=== PATIENT | female | born 1975 | race Caucasian/White ===

== ENCOUNTER → 2019-11-07 09:37 | Outpatient (CLI) | payer OTHER, BC, SELFPAY ==
--- NOTE | ~2019-11-07 | MM_ITS ---
EXAMINATION: MM diagnostic teri BI w josephine HISTORY: Itching of the right nipple. TECHNIQUE: Additional 3-D tomosynthesis images of the breasts were performed and synthetic 2-D images were generated. CAD analysis was submitted and interpreted. COMPARISON: Comparison to multiple prior studies sequentially, with oldest reviewed study dated 12/2017. BREAST PARENCHYMAL COMPOSITION: Breast composed of scattered areas of fibroglandular density FINDINGS: There are no suspicious masses, calcifications or architectural distortion in either breast to suggest malignancy. IMPRESSION: 1. No mammographic evidence for malignancy in either breast. 2. Routine yearly screening mammogram and regular clinical breast examination are recommended. Recomm end follow-up clinical management for right nipple discomfort. BI-RADS Category 1: Negative Reviewed, dictated and finalized at location A. IMPRESSION: 1. No mammographic evidence for malignancy in either breast. 2. Routine yearly screening mammogram and regular clinical breast examination a re recommended. Recommend follow-up clinical management for right nipple discom fort. BI-RADS Category 1: Negative
== END ==
PROVIDERS: Visit Provider Obstetrics & Gynecology Gynecology
DX: N64.59 Other signs and symptoms in breast (principal)
CPT/HCPCS: 77062; 77066; G0279

== ENCOUNTER 2019-12-04 08:52 | Outpatient (CLI) | payer OTHER, BC, SELFPAY ==
--- NOTE | ~2019-12-04 | US_ITS ---
EXAMINATION: US venous doppler LE EXAM DATE: 12/04/2019 09:39 INDICATION: Right leg swelling and pain. TECHNIQUE: Multiple grayscale, color flow and Doppler images of the right lower extremity deep venous system were obtained and reviewed. Comparison is made to prior examination from 11/23/2012. FINDINGS: RIGHT SIDE Common femoral: -------- Normal. Profunda femoral: ------- Normal. Femoral: Normal. Popliteal: Compressible. Linear longitudinal oriented web/scarring, unchanged. Posterior tibial: --------- Normal. Peroneal: Normal. Gastrocnemius: Not visualized. Soleus: Not visualized. Greater saphenous: ----- Normal. Lesser saphenous: ------ Not visualized. IMPRESSION: 1. No evidence of right lower extremity deep venous thrombosis. Reviewed, dictated and finalized at location B.
--- NOTE | ~2019-12-04 | US_ITS ---
EXAMINATION: US joint non vasc ltd RT EXAM DATE: 12/04/2019 09:38 INDICATION: Right popliteal space pain. TECHNIQUE: Multiple grayscale and Doppler images of the right popliteal region were obtained (by a te chnologist who performed the scan) and subsequently reviewed. There is no prior study for comparison . FINDINGS: Scanning in popliteal fossa, area of clinical concern demonstrated no Chua's cyst, mass or other abn ormality. IMPRESSION: 1. Unremarkable right popliteal fossa. Reviewed, dictated and finalized at location B.
[2019-12-04 09:51] LABS: Basophils Percent Auto 0.7 % (0.2-1.2); Eosinophils Absolute Auto 0.1 K/mm3 (0-0.3); Eosinophils Percent Auto 2.4 % (0-4.4); Hematocrit 40.6 % (37.0-47.0); Immature Granulocyte Absolute 0.02 K/mm3 (0.00-0.031); Immature Granulocyte Percent A 0.4 % (0-0.5); Lymphocytes Absolute Auto 1.01 K/mm3 (0.9-3.2); Lymphocytes Percent Auto 22.4 % (18.3-44.2); Mean Corpuscular HGB Conc 34.5 g/dl (32-36); Mean Corpuscular Hemoglobin 31.8 pg (26-34); Mean Corpuscular Volume 92.3 fl (80-100); Mean Platelet Volume 9.3 fl (7.4-10.4); Monocytes Absolute Auto 0.3 K/mm3 (0.1-0.6); Monocytes Percent Auto 6.9 % (2.6-8.5); Neutrophils Percent Auto 67.2 % (45.5-73.1); Platelet Count Result 295 k/mm3 (150-375); Red Cell Distribution Width 11.6 % (11.5-14.5); White Blood Count 4.5 K/mm3 (4.5-10.0)
[2019-12-04 10:01] LABS: INR 1.1; Prothrombin Time 13.9 Seconds (11.1-14.7)
[2019-12-04 10:02] LABS: Partial Thromboplastin Time 50.7 SECONDS (22.3-36.8)
[2019-12-04 10:12] LABS: Alanine Aminotransferase 22 U/L (4-35); Albumin Level 4.6 g/dL (3.5-5.1); Alkaline Phosphatase 51 U/L (38-126); Anion Gap 9 mmol/L (8-16); Aspartate Amino Transferase 23 U/L (14-36); Bilirubin,Total 0.7 mg/dL (0.2-1.3); Blood Urea Nitrogen 19 mg/dL (7-17); Calcium 9.6 mg/dL (8.4-10.2); Carbon Dioxide 25 mmol/L (22-30); Chloride 105 mmol/L (98-107); Estimated Glomerular Filt Rate > 60; Glucose 101 mg/dL (65-105); Potassium 4.2 mmol/L (3.4-5.0); Sodium 139 mmol/L (137-145)
== END 2019-12-04 08:53 | disposition home or self-care (01) ==
PROVIDERS: PCP Internal Medicine; Visit Provider Internal Medicine
DX: I82.409 Acute embolism and thrombosis of unspecified deep veins of unspecified lower extremity (principal); M79.661 Pain in right lower leg; M79.89 Other specified soft tissue disorders; Z79.01 Long term (current) use of anticoagulants; Z79.899 Other long term (current) drug therapy
CPT/HCPCS: 36415; 76882; 80053; 85025; 85610; 85730; 93971

== ENCOUNTER 2020-05-28 09:36 | Outpatient (CLI) | payer OTHER, BC, SELFPAY ==
--- NOTE | ~2020-05-28 | MR_ITS ---
EXAMINATION: MR brain/brain stem wo/w con DATE: 05/28/2020 10:41 INDICATION: Migraine headache with aura, not intractable, with status migrainosus. TECHNIQUE: Magnetic resonance imaging (MRI) of the brain and brainstem was performed without and with 15 mL MultiHance intravenous contrast. Sequences included sagittal and axial T1-weighted FSE, axial diffusion-weighted FS EPI, axial T2*-weighted GRE, axial T2-weighted FLAIR Propeller, and axial T2-we ighted Propeller. Postcontrast sequences included axial and coronal T1-weighted FSE. Apparent diffusi on coefficient (ADC) maps were created. COMPARISON: Brain MRI 06/19/18 FINDINGS: There is no intracranial hemorrhage, acute infarction, or abnormal intracranial mass lesion . There are scattered areas of nonspecific increased T2-weighted signal intensity in the cerebral whi te matter, which is within normal limits for the patient's age. The ventricles are normal in size. Th ere is mild mucosal thickening in the paranasal sinuses. There are mucous retention cysts in left max illary sinus. The orbits are normal. The mastoid air cells are normal. IMPRESSION: 1. Normal aging brain. Reviewed, dictated and finalized at location A. R PHYSICIAN IMPRESSION: 1. Normal aging brain.
--- NOTE | ~2020-05-28 | MR_ITS ---
EXAMINATION: MR lumbar spine wo con DATE: 05/28/2020 10:40 INDICATION: Dorsalgia, unspecified. TECHNIQUE: Magnetic resonance imaging (MRI) of the lumbar spine was performed without intravenous con trast. Sequences included sagittal T2-weighted FSE, sagittal STIR FSE, sagittal T1-weighted FSE, and axial T2-weighted FSE. COMPARISON: None FINDINGS: There is 6 degrees levocurvature of lumbar spine. Vertebral body heights are normal. There is mildly decreased disc height from L1-L2 through L5-S1. The distal spinal cord signal intensity is normal. The conus medullaris is at T12-L1. The following disc levels are specifically discussed: L1-L2: The disc is bulging. There is mild bilateral facet joint osteoarthritis. There is mild left ne ural foraminal stenosis. There is mild central canal stenosis. L2-L3: The disc is bulging and has an annular fissure. There is mild bilateral facet joint osteoarthr itis. There is mild bilateral neural foraminal stenosis. There is mild central canal stenosis. L3-L4: The disc is bulging and has an annular fissure. There is mild bilateral facet joint osteoarthr itis. There is mild bilateral neural foraminal stenosis. There is mild central canal stenosis. L4-L5: The disc is bulging and has an annular fissure. There is severe bilateral facet joint osteoart hritis. There is mild bilateral neural foraminal stenosis. There is mild central canal stenosis. L5-S1: The disc is bulging and has an annular fissure. There is mild right and moderate left facet magalys int osteoarthritis. There is mild bilateral neural foraminal stenosis. There is mild central canal st enosis. IMPRESSION: 1. Mild lumbar spondylosis. Reviewed, dictated and finalized at location A. PACKER IMPRESSION: 1. Mild lumbar spondylosis.
== END 2020-05-28 09:37 | disposition home or self-care (01) ==
LOC: ANHIMG 09:42
PROVIDERS: PCP Internal Medicine; Visit Provider Internal Medicine
DX: G43.101 Migraine with aura, not intractable, with status migrainosus (principal); M47.27 Other spondylosis with radiculopathy, lumbosacral region; M48.07 Spinal stenosis, lumbosacral region
CPT/HCPCS: 70553; 72148; A9577

== ENCOUNTER 2020-07-04 13:00 | Outpatient (CLI) | payer OTHER, BC, SELFPAY | END 2020-07-04 13:01 | disposition home or self-care (01) | LOC: ANHCOVIDVC 13:00 | PROVIDERS: PCP Internal Medicine | DX: Z23 Encounter for immunization (principal) | CPT/HCPCS: 0001A; 91300 ==

== ENCOUNTER 2020-07-25 13:02 | Outpatient (CLI) | payer OTHER, BC, SELFPAY | END 2020-07-25 13:03 | disposition home or self-care (01) | LOC: ANHCOVIDVC 13:02 | PROVIDERS: PCP Internal Medicine | DX: Z23 Encounter for immunization (principal) | CPT/HCPCS: 0002A; 91300 ==

== ENCOUNTER → 2020-12-08 15:54 | Outpatient (CLI) | payer OTHER, BC, SELFPAY ==
--- NOTE | ~2020-12-08 | MM_ITS ---
EXAMINATION: MM screening [facility] BI w josephine HISTORY: Screening mammogram TECHNIQUE: Craniocaudal and mediolateral oblique 3-D tomosynthesis images were obtained and synthetic 2-D images were generated. CAD analysis was submitted and interpreted. COMPARISON: 11/07/2019, 11/21/2018, 10/24/2017 BREAST PARENCHYMAL COMPOSITION: There are scattered areas of fibroglandular density. FINDINGS: There is no evidence of suspicious mass, calcification, or architectural distortion to sugg est malignancy in either breast. There has been no suspicious interval change. IMPRESSION: 1. No mammographic evidence of malignancy. 2. Recommend routine screening mammography in one year. BI-RADS Category 1: Negative Reviewed, dictated and finalized at location A.
== END ==
PROVIDERS: Visit Provider Nurse Practitioner
DX: Z12.31 Encounter for screening mammogram for malignant neoplasm of breast (principal)
CPT/HCPCS: 77063; 77067

== ENCOUNTER 2021-01-22 06:40 | Outpatient (CLI) | payer OTHER, BC, SELFPAY ==
[2021-01-22 08:06] LABS: INR 1.2; Prothrombin Time 14.9 Seconds (11.1-14.7)
== END 2021-01-22 06:41 | disposition home or self-care (01) ==
PROVIDERS: PCP Internal Medicine; Visit Provider Internal Medicine
DX: Z51.81 Encounter for therapeutic drug level monitoring (principal); Z79.01 Long term (current) use of anticoagulants
CPT/HCPCS: 36415; 85610

== ENCOUNTER 2021-01-23 12:12 | Emergency (ER) | payer OTHER, BC, SELFPAY ==
--- NOTE | ~2021-01-23 | XR_ITS ---
XR chest 2V DATE: 01/23/2021 13:19 INDICATION: Chest pain, shortness of breath TECHNIQUE: PA and lateral views COMPARISON: 10/04/2018 PA and lateral chest FINDINGS: Normal heart size. No hilar or mediastinal enlargement. No pulmonary infiltrate or consolid ation, pleural effusion or pulmonary vascular congestion or pneumothorax. Mild dextroscoliosis of the thoracic spine. IMPRESSION: No active cardiopulmonary disease Mild dextro scoliosis of the thoracic spine Reviewed, dictated and finalized at location A.
--- NOTE | ~2021-01-23 | CT_ITS ---
EXAMINATION: CTA chest PE protocol DATE: 01/23/2021 14:18 INDICATION: Chest pain. TECHNIQUE: Computed tomography angiography (CTA) of the chest was performed with 100 mL Omnipaque-350 intravenous contrast timed to evaluate the pulmonary arteries. Coronal maximum intensity projection 3D-reconstructions were created by the technologist. Automated exposure control and iterative reconst ruction technique were employed. The dose-length product was 274.89 mGy-cm. COMPARISON: Chest CT 10/04/2018 FINDINGS: There is a 3 mm nodule in right lower lobe, likely benign. No pleural effusion. The heart s ize is normal. No pericardial effusion. There is no pulmonary embolus. There is mild thoracic spondyl osis. IMPRESSION: 1. No pulmonary embolus. Reviewed, dictated and finalized at location A. IMPRESSION: 1. No pulmonary embolus.
--- NOTE | 2021-01-23 12:13 | ECG_ITS ---
Measurements Intervals [place] Rate: 97 P: 33 MS: 116 QRS: 21 QRSD: 78 T: 65 QT: 333 QTc: 423 Interpretive Statements SINUS RHYTHM WITH SHORT MS INTERVAL VENTRICULAR PREMATURE COMPLEX BORDERLINE ECG Electronically Signed On 01-23-2021 12:21:32 CDT by Terry Cortez D.O.
[2021-01-23 12:19] VITALS: BP 158/91; PULSE 94; RESP 18; TEMP 36.9; O2SAT 100
[2021-01-23 12:39] LABS: Basophils Percent Auto 0.4 % (0.2-1.2); Eosinophils Absolute Auto 0.1 K/mm3 (0-0.3); Eosinophils Percent Auto 1.3 % (0-4.4); Hematocrit 41.6 % (37.0-47.0); Hemoglobin 14.9 g/dL (12.0-15.0); Immature Granulocyte Absolute 0.01 K/mm3 (0.00-0.031); Immature Granulocyte Percent A 0.2 % (0-0.5); Lymphocytes Absolute Auto 1.51 K/mm3 (0.9-3.2); Lymphocytes Percent Auto 27.2 % (18.3-44.2); Mean Corpuscular HGB Conc 35.8 g/dl (32-36); Mean Corpuscular Hemoglobin 32.3 pg (26-34); Mean Platelet Volume 9.3 fl (7.4-10.4); Monocytes Absolute Auto 0.5 K/mm3 (0.1-0.6); Monocytes Percent Auto 9.7 % (2.6-8.5); Neutrophils Absolute Auto 3.4 K/mm3 (1.3-6.7); Neutrophils Percent Auto 61.2 % (45.5-73.1); Platelet Count Result 296 k/mm3 (150-375); Red Blood Count 4.62 M/mm3 (4.2-5.4); Red Cell Distribution Width 11.1 % (11.5-14.5); White Blood Count 5.6 K/mm3 (4.5-10.0)
[2021-01-23 12:40] VITALS: PULSE 80
[2021-01-23 12:41] VITALS: BP 138/86; PULSE 81; RESP 14; O2SAT 99
[2021-01-23] MEDS: ASPIRIN 81 MG CHEWABLE TABLET 324 MG PO (12:41)
[2021-01-23 12:49] LABS: Anion Gap 14 mmol/L (8-16); Blood Urea Nitrogen 17 mg/dL (7-17); Carbon Dioxide 21 mmol/L (22-30); Chloride 102 mmol/L (98-107); Estimated CRCL calculation 80 ml/min; Estimated Glomerular Filt Rate > 60; Glucose 94 mg/dL (65-110); Potassium 3.9 mmol/L (3.4-5.0); Sodium 137 mmol/L (137-145)
[2021-01-23 12:50] LABS: INR 1.3; Prothrombin Time 15.7 Seconds (11.1-14.7)
[2021-01-23 12:52] LABS: Partial Thromboplastin Time 41.3 SECONDS (22.3-36.8)
[2021-01-23 13:01] LABS: Troponin I < 0.012 ng/mL (0.000-0.034)
--- NOTE | 2021-01-23 13:45 | ED.GENADULT ---
HPI - General Adult General Chief complaint: Chest Pain <Yu Gonzalez PA-C - Last Filed: 01/23/21 15:54> Stated complaint: chest pain <Yu Gonzalez PA-C - Last Filed: 01/23/21 15:54> Time Seen by Provider: 01/23/21 13:41 <Yu Gonzalez PA-C - Last Filed: 01/23/21 15:54> Source: patient <RAFY Babin Last Filed: 01/23/21 15:54> Mode of arrival: ambulatory <Yu Gonzalez PA-C - Last Filed: 01/23/21 15:54> Limitations: no limitations <RAFY Babin Last Filed: 01/23/21 15:54> History of Present Illness HPI narrative: Patient is here for evaluation of heaviness in her chest and shortness of breath. She has long history blood clots due to antiphospholipid antibody disease. She is recently had her blood thinner changed and has since not been therapeutic. Her dose was most recently increased yesterday. <Yu Gonzalez PA-C - Last Filed: 01/23/21 15:54> Relieving factors: none <Yu Gonzalez PA-C - Last Filed: 01/23/21 15:54> Exacerbating factors: none <Yu Gonzalez PA-C - Last Filed: 01/23/21 15:54> Associated symptoms: denies other symptoms <RAFY Babin Last Filed: 01/23/21 15:54> Related Data Allergies/adverse reactions: Allergies Allergy/AdvReac Type Severity Reaction Status Date / Time No Known Allergies Allergy Unknown Verified 01/23/21 12:32 <RAFY Babin Last Filed: 01/23/21 15:54> Review of Systems Review of Systems: All systems reviewed & are unremarkable except as noted in HPI and below <Yu Gonzalez PA-C - Last Filed: 01/23/21 15:54> PMF Past Medical History Medical History: Medical History BMI 26.0-26.9,adult BMI 27.0-27.9,adult Chronic low back pain Follow up [facility] [employer] [facility] Pain and swelling of right lower leg Post-phlebitic syndrome Rhinorrhea Sore throat Venous insufficiency <Yu Gonzalez PA-C - Last Filed: 01/23/21 15:54> Social History Social History: Social History Smoking status: Never smoker Smoking end date: 04/18/08 Alcohol intake: current <Yu Gonzalez PA-C - Last Filed: 01/23/21 15:54> Exam Const: General: no acute distress and alert <Yu Gonzalez PA-C - Last Filed: 01/23/21 15:54> Orientation/consciousness: patient oriented x3 <Yu Gonzalez PA-C - Last Filed: 01/23/21 15:54> HENMT: Head: normal to inspection <Yu Gonzalez PA-C - Last Filed: 01/23/21 15:54> Eyes: Pupils: Equal, round and reactive pupils present <Yu Gonzalez PA-C - Last Filed: 01/23/21 15:54> Chest: Chest palpation & inspection: normal inspection of the chest <Yu Gonzalez PA-C - Last Filed: 01/23/21 15:54> Resp: Effort & Inspection: normal respiratory effort <Yu Gonzalez PA-C - Last Filed: 01/23/21 15:54> Auscultation: clear to auscultation bilaterally <Yu Gonzalez PA-C - Last Filed: 01/23/21 15:54> Cardio: Rate: regular rate <Yu Gonzalez PA-C - Last Filed: 01/23/21 15:54> Rhythm: regular rhythm <Yu Gonzalez PA-C - Last Filed: 01/23/21 15:54> GI: GI Palp: Yes Soft to palpation <Yu Gonzalez PA-C - Last Filed: 01/23/21 15:54> Skin: General skin exam: normal color <Yu Gonzalez PA-C - Last Filed: 01/23/21 15:54> Extrem: General: normal to inspection <Yu Gonzalez PA-C - Last Filed: 01/23/21 15:54> Other: Chronic swelling in right leg due to multiple DVT <Yu Gonzalez PA-C - Last Filed: 01/23/21 15:54> Psych: Mental Status: mental status grossly normal <Yu Gonzalez PA-C - Last Filed: 01/23/21 15:54> Course Course Emergency Course: CTA was negative for PE. Plan discussed with primary care physician Dr. Handley, he would like a 3-day course of subcu Lovenox and he will follow up with patient. Plan discussed with patient she is agreeable <
--- NOTE | 2021-01-23 14:06 | PC.NURSE ---
test negative, controls valid
[2021-01-23 15:00] VITALS: BP 120/79; PULSE 88; RESP 15; O2SAT 98
[2021-01-23 15:26] VITALS: BP 140/78; PULSE 79; RESP 16; O2SAT 99
[2021-01-23] MEDS: ENOXAPARIN 80 MG/0.8 ML SYRINGE SUB-Q (15:26)
[2021-01-23 16:04] VITALS: BP 132/82; PULSE 75; RESP 16; O2SAT 99
[2021-01-23 16:13] LABS: Troponin I < 0.012 ng/mL (0.000-0.034)
== END 2021-01-23 16:06 | disposition home or self-care (01) ==
PROVIDERS: Emergency Provider Emergency Medicine; PCP Internal Medicine
DX: D68.61 Antiphospholipid syndrome (principal); I49.3 Ventricular premature depolarization; M41.9 Scoliosis, unspecified; Z79.01 Long term (current) use of anticoagulants
CPT/HCPCS: 36415; 71046; 71275; 80048; 84484; 85025; 85610; 85730; 93005; 96372; 99284; A9270; J1650; Q9967

== ENCOUNTER 2021-04-15 09:45 | Outpatient (RCR) | payer OTHER, BC, SELFPAY ==
[2021-02-04 16:03] LABS: INR 1.3; Prothrombin Time 16.4 Seconds (11.1-14.7)
[2021-02-09 07:28] LABS: INR 1.4; Prothrombin Time 17.1 Seconds (11.1-14.7)
[2021-02-11 14:46] LABS: Prothrombin Time 22.6 Seconds (11.1-14.7)
[2021-04-15 10:23] LABS: INR 1.7; Prothrombin Time 19.7 Seconds (11.1-14.7)
== END 2021-05-05 23:59 | disposition home or self-care (01) ==
LOC: ANHLAB 09:45
PROVIDERS: PCP Internal Medicine; Visit Provider Internal Medicine
DX: Z51.81 Encounter for therapeutic drug level monitoring (principal); I82.409 Acute embolism and thrombosis of unspecified deep veins of unspecified lower extremity; D68.61 Antiphospholipid syndrome; Z79.01 Long term (current) use of anticoagulants
CPT/HCPCS: 36415; 85610

== ENCOUNTER → 2021-12-03 07:45 | Outpatient (CLI) | payer OTHER, BC, SELFPAY ==
--- NOTE | ~2021-12-03 | MMUS_ITS ---
EXAMINATION: MM diagnostic teri BI w josephine, US breast BI limited HISTORY: Two-month history of bilateral areolar red raised bumps that became dry and flaky; upper inn er quadrant right breast lump. Patient reports she has lipomas all over body. TECHNIQUE: Bilateral full field and spot 3-D tomosynthesis images of the breasts were performed and s ynthetic 2-D images were generated. CAD analysis was submitted and interpreted. High resolution bilat eral subareolar and right upper inner quadrant breast ultrasound was performed. COMPARISON: 12/08/2020 bilateral screening mammogram 11/07/2019 bilateral diagnostic mammogram 11/21/2018, 10/24/2017 bilateral screening mammogram examination s FINDINGS: MAMMOGRAPHIC FINDINGS: No suspicious mass or architectural distortion, malignant calcification, skin thickening or retractio n or significant new or developing density is detected. ULTRASOUND: No suspicious mass, shadowing, cyst or other significant sonographic finding is noted in either subar eolar area or upper inner quadrant of the right breast. IMPRESSION: 1. No mammographic evidence of malignancy 2. Routine mammographic screening is recommended BI-RADS Category 1: Negative Reviewed, dictated and finalized at location A. IMPRESSION: 1. No mammographic evidence of malignancy 2. Routine mammographic screening is recommended BI-RADS Category 1: Negative
== END ==
PROVIDERS: PCP Internal Medicine; Visit Provider Nurse Practitioner
DX: R92.8 Other abnormal and inconclusive findings on diagnostic imaging of breast (principal); N64.89 Other specified disorders of breast
CPT/HCPCS: 76642; 77062; 77066; G0279

== ENCOUNTER → 2022-04-30 12:05 | Outpatient (CLI) | payer OTHER, BC, SELFPAY ==
--- NOTE | ~2022-04-30 | XR_ITS ---
EXAMINATION: XR finger 3rd RT min 2V DATE: 04/30/2022 12:23 INDICATION: Acute osteomyelitis at the right third digit TECHNIQUE: Dorsal palmar, lateral and 2 oblique views of the right third digit were obtained COMPARISON: None FINDINGS: Bone alignment is normal. No fracture. Joint spaces are normal. No cortical erosions or periosteal re action. Soft tissues are unremarkable. IMPRESSION: 1. Negative right third digit radiographs. Reviewed, dictated and finalized at location A. TECHNICIAN
== END ==
PROVIDERS: PCP Internal Medicine; Visit Provider Plastic Surgery
DX: M86.141 Other acute osteomyelitis, right hand (principal)
CPT/HCPCS: 73140

== ENCOUNTER → 2023-03-24 14:40 | Outpatient (CLI) | payer OTHER, BC, SELFPAY ==
--- NOTE | ~2023-03-24 | MM_ITS ---
EXAMINATION: MM screening teri BI w josephine HISTORY: Screening mammogram TECHNIQUE: Craniocaudal and mediolateral oblique 3-D tomosynthesis images were obtained and synthetic 2-D images were generated. CAD analysis was submitted and interpreted. COMPARISON: 12/03/2021, 12/08/2020, 11/07/2019 BREAST PARENCHYMAL COMPOSITION:There are scattered areas of fibroglandular density. FINDINGS: No suspicious mass, calcification, or architectural distortion are identified in either nayeli ast to suggest malignancy. There has been no suspicious interval change. IMPRESSION: No mammographic evidence of malignancy. Recommend routine screening mammography in one year. BI-RADS Category 1: Negative Reviewed, dictated and finalized at location . GER STRATEGY
== END ==
PROVIDERS: PCP Obstetrics & Gynecology Gynecology; Visit Provider Obstetrics & Gynecology Gynecology
DX: Z12.31 Encounter for screening mammogram for malignant neoplasm of breast (principal)
CPT/HCPCS: 77063; 77067

== ENCOUNTER 2024-05-16 14:53 | Outpatient (CLI) | payer OTHER, BC, SELFPAY ==
--- NOTE | ~2024-05-16 | MM_ITS ---
EXAMINATION: MM screening teri BI w josephine HISTORY: Screening TECHNIQUE: Craniocaudal and mediolateral oblique 3-D tomosynthesis images were obtained and synthetic 2-D images were generated. CAD analysis was submitted and interpreted. COMPARISON: Comparison to multiple prior studies sequentially, with oldest reviewed study dated 12/2017. BREAST PARENCHYMAL COMPOSITION: Not dense: There are scattered areas of fibroglandular density. FINDINGS: There is no evidence of suspicious mass, calcification, or architectural distortion to sugg est malignancy in either breast. There has been no suspicious interval change. IMPRESSION: 1. No mammographic evidence of malignancy. 2. Recommend routine screening mammography in one year. BI-RADS Category 1: Negative Reviewed, dictated and finalized at location A. OLOGY SPECIALIST
== END 2024-05-16 14:54 | disposition home or self-care (01) ==
LOC: MICIMG 14:54
PROVIDERS: PCP Internal Medicine; Visit Provider Nurse Practitioner
DX: Z12.31 Encounter for screening mammogram for malignant neoplasm of breast (principal)
CPT/HCPCS: 77063; 77067

== ENCOUNTER 2024-05-28 02:08 | Day surgery (SDC) | payer OTHER, BC, SELFPAY ==
[2024-05-15 09:43] VITALS: BMI 24.3
--- NOTE | 2024-05-22 09:55 | PC.NURSE ---
Spoke with amna and Anika in Dr. Mckay office regarding medication Warfarin. They verbalize understanding that the last dose is to be taken on 05/24/24 and start Lovenox on 05/25-05/26 and will hold on 05/27/2024 and the Endoscopist will instruct them when to restart after the procedure.
--- OUTSIDE RECORDS SUMMARY | 2024-05-28 02:14 | XMS_ITS ---
Care Plan - [facility] Created on: May 28, 2024 KARAN COYLE : 1975 Sex: Female Author Organization [facility] Address [address] [place] [address] Phone Care Team Providers Care Latex Fashions Designer Name Role Phone Unavailable Unavailable Unavailable
--- OUTSIDE RECORDS SUMMARY | 2024-05-28 02:15 | XMS_ITS | Clinical Summary ---
Author Organization [facility] Address [address] [place] [address] Phone Care Team Providers Care Chucking And Sawing Machine Operator Name Role Phone Unavailable Unavailable Unavailable Reason for Visit and Chief Complaint PELVIC EXAM Plan of Treatment No Plan of Treatment Recorded Assessments Includes: Assessments from this encounter No Assessments Recorded Medical Equipment - Implanted Devices Includes: Current Devices No Medical Equipment Recorded Medications Administered Includes: Administered Medications from this encounter No Administered Medications Recorded Results Includes: Results discussed during this encounter No Results Recorded For Specified Dates History of Present Illness Includes: History of Present Illness from this encounter No History of Present Illness Recorded Social History No Social History Recorded - Smoking Status Unknown Medical History Includes: Medical History addressed during this encounter No Medical History Recorded Family History Includes: Family History addressed during this encounter No Family History Recorded Review of Systems Includes: Review of Systems from this encounter No Review of Systems Recorded Mental Status Includes: Mental Status from this encounter No Mental Status Recorded Functional Status Includes: Functional Status from this encounter No Functional Status Recorded Physical Exam Includes: Physical Exam from this encounter No Physical Exam Recorded Allergies Includes: Active Allergies No Known Allergies Encounters Encounter Provider Location Date Check-In Time Check-Out Time Diagnosis PELVIC EXAM FANNY JEAN M.D. [facility] DOCUMENTUM CONSULTANT 7 5:24PM 6:02PM Clinical Notes Includes: Clinical Notes from this encounter No Clinical Notes Recorded
--- OUTSIDE RECORDS SUMMARY | 2024-05-28 02:15 | XMS_ITS | Clinical Summary ---
Author Organization [facility] Address [address] [place] [address] Phone Care Team Providers Care Mold Stacker Name Role Phone Unavailable Unavailable Unavailable Reason for Visit and Chief Complaint CHART UPDATE Plan of Treatment No Plan of Treatment [...] History of Present Illness from this encounter DREW COOPER is a 33 year old female. - Age at menarche was 16 years old. Social History Description Last Updated Alcohol social 06/19/2009 Last Documented On 0 8:19AM ; [facility] Exercising regularly 06/19/2009 Last Documented On 0 8:19AM ; [facility] Marital history 06/19/2009 Last Documented On 0 8:19AM ; [facility] Sexually active with 1 partners in the l ast year 06/19/2009 Last Documented On 0 8:19AM ; [facility] Smoking 5 cigs/day 06/19/2009 Last Documented On 0 8:19AM ; [facility] Smoking Status Unknown Medical History Includes: Medical History addressed during this encounter Description Last Updated Hx of DVT & PE in 1999 ~Hx o f depression ~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 ~Age 8 - eye surgery 06/19/2009 Last Documented On 0 8:19AM ; [facility] 1 living children 06/19/2009 Last Documented On 0 8:19AM ; [facility] 2 miscarriage(s) 06/19/2009 Last Documented On 0 8:19AM ; [facility] Chlamydia 06/19/2009 Last Documented On 0 8:19AM ; [facility] 4 06/19/2009 Last Documented On 0 8:19AM ; [facility] IUD removed 04/09/08 06/19/2009 Last Documented On 0 8:19AM ; [facility] Kidney disease 06/19/2009 Last Documented On 0 8:19AM ; [facility] Last pap smear date 04/09/2008 0 Last Documented On 0 8:19AM ; [facility] LMP: 10/23/2008 06/19/2009 Last Documented On 0 8:19AM ; [facility] Family History Includes: Family History addressed during this encounter Description Last Updated Family history of Cancer 06/19/2009 Last Documented On 0 8:19AM ; [facility] Review of Systems Includes: Review of Systems [...] Location Date Check-In Time Check-Out Time Diagnosis CHART UPDATE FANNY JEAN M.D. [facility] SPEC 0 8:11AM 11:59PM Clinical Notes Includes: Clinical Notes from this encounter No Clinical Notes Recorded
--- OUTSIDE RECORDS SUMMARY | 2024-05-28 02:15 | XMS_ITS | Clinical Summary ---
Author Organization [facility] [address] Address [address] [place] [address] Care Team Providers Care Lead Level Designer Name Role Phone Carlos Mckay MD Primary Care Provider [phone] Allergies No known active allergies Medications warfarin (COUMADIN) 10 mg tablet TAKE 1 TABLET BY MOUTH EVERY DAY PER PROTOCOL 1 Active warfarin (COUMADIN) 2 mg tablet 1 Active buPROPion XL (WELLBUTRIN XL) 300 mg 24 hr tablet Take 300 mg by mouth every morning 1 Active mupirocin (BACTROBAN) 2 % ointmentIndicat ions:Paronychia of right middle finger Apply topically 3 (three) times a day 22 g 2 Active Active Problems Problem Noted Date Diagnosed Date Anxiety 07/11/2014 Overview (07/23/2016): Anxiety History of deep venous thrombosis 09/01/2013 Overview (07/21/2016): History of DVT (deep vein thrombosis) Antiphospholipid syndrome 09/01/2013 Overview (07/22/2016): Antiphospholipid antibody syndrome Surgical History Surgery Date Site/Laterality Comments OTHER SURGICAL HISTORY 1999 : 27 hr labor OTHER SURGICAL HISTORY 2009 : 4 hr labor ABLATION 2012 Ablation OTHER SURGICAL HISTORY Abdominal pain: Diagnostic Lap Medical History Medical History Date Comments Hx Other Medical Blood Clotting Disorder Hx Other Medical 1999 ; Outc ome: 40 week 7 lb(s) 11 oz Female Hx Other Medical 2009 ; Outc ome: 37 week 6 lb(s) 3 oz Female Hx Other Medical DVTs x 2 RLE Hx Other Medical Abdominal pain; Comments: MTB 07/11/2014 - Social History Tobacco Use Types Packs/Day Years Used Date Smoking Tobacco: Former Cigarettes Q uit: 04/18/2008 Tobacco Cessation:Counseling Given: Not Answered Comments:Smoking History Packs/day: 1 Packs Alcohol Use Standard Drinks/Week Comments Yes 0 (1 standard drink = 0.6 oz pur e alcohol) Comments Unknown Sex and Gender Information Value Date Recorded Sex Assigned at Not on file Legal Sex Female 11:13 AM SOLE TIER Gender Identity Not on file Sexual Orientation Not on file Obstetrics History Last Filed Vital Signs Vital Sign Reading Time Taken Comments Blood Pressure 152/82 03/24/2022 2:58 PM SOLE TIER Pulse 80 03/24/2022 2:58 PM SOLE TIER Temperature 36.6 C (97.9 F) 03/24/2022 2:58 PM SOLE TIER Respiratory Rate 16 03/24/2022 2:58 PM SOLE TIER Oxygen Saturation 100% 03/24/2022 2:58 PM SOLE TIER Inhaled Oxygen Concentration - - Weight 74.4 kg (164 lb) 03/24/2022 2:58 PM SOLE TIER Height 170.2 cm (5' 7 ) 03/24/2022 2:58 PM SOLE TIER Body Mass Index 25.69 03/24/2022 2:58 PM SOLE TIER Plan of Treatment Health Maintenance Due Date Last Done Comments Cervical Cancer Screening 1977 Colon Cancer Screening-Colonoscopy 1977 Depression Screening 1977 Hepatitis C Screening 1977 DTaP/Tdap/Td Vaccine (1 - Tdap) 1988 Hepatitis B Screening 09/14/1995 Regular Well Visit/Exam 18-64 09/14/1995 Breast Cancer Screening-Mammogram 03/12/2014 03/12/2013 Covid-19 Vaccine (2023-2 5 season) 2023 07/25/2020, 07/04/2020 Influenza Vaccine (#1) 2023 01/17/2013 HPV Vaccines Aged Out No longer eligi ble based on patient's age to complete this topic Pneumococcal vaccine <65 Aged Out No longer eligible based on patient's age to complete this topic Procedures Procedure Name Priority Date/Time Associated Diagnosis Comments DIGITAL MAMMOGRAPHY Routine 03/12/2013 3 :40 PM SOLE TIER from Last 3 Months or Most Recently Relevant to Health Maintenance Results * DIGITAL MAMMOGRAPHY (03/12/2013 3:40 PM SOLE TIER) Anatomical Region Laterality Modality Breast Mammography 03/12/2013 3:40 PM SOLE TIER Narrative 03/13/2013 12:47 PM SOLE TIER Vrl Screening Mamm Bi Acc#: [id number] Performed by: jennifer DATE OF EXAM: Mar 12 2013 CLINICAL HISTORY: Baseline. Screen. RESULT: Two views of each breast with no prior study demonstrate mild to moderate fibroglandular density bilaterally. No suspicious mass or calcification is seen to suggest mammographic evidence of malignancy. In the posterior retroareolar region on the left there are two small adjacent subcentimeter nodular foci that have the appearance of intramammary lymph nodes. In the central posterior aspect of the left breast best appreciated on the left MLO view there is a collection of three benign appearing breast calcifications. Digital technology was employed plus computer-aided detection software (R2) was utilized in interpretation of these images. This facility utilizes a reminder system to notify patients of yearly mammograms. IMPRESSION: 1. NO DEFINITIVE MAMMOGRAPHIC EVIDENCE OF MALIGNANCY. 2. TWO SMALL ADJACENT NODULAR FOCI IN THE RETROAREOLAR AREA ON THE LEFT THAT HAVE THE APPEARANCE OF TWO ADJACENT SMALL INTRAMAMMARY LYMPH NODES. 3. ANNUAL FOLLOW UP RECOMMENDED. BI-RADS CATEGORY 2: BENIGN FINDINGS. Interpreting Physician: JARVIS OLVERA M.D. Read on: Mar 13 2013 7:21A Transcribed by: SHABBIR On: Mar 13 2013 10:43A Approved Electronically by: JARVIS OLVERA M.D. on: Mar 13 2013 12:47P Ordering DR: LALITO ESTRADA Attending DR: LALITO ESTRADA Procedure Note Provider, MD Mello - 08/12/2016 Vrl Screening Mamm Bi Acc#: [id number] Performed by: jennifer DATE OF EXAM: Mar 12 2013 CLINICAL HISTORY: Baseline. Screen. RESULT: Two views of each breast with no prior study demonstrate mild to moderatefibroglandular density bilaterally. No suspicious mass or calcificationis seen to suggest mammographic evidence of malignancy. In the posteriorretroareolar region on the left there are two small adjacent subcentimeternodular foci that have the appearance of intramammary lymph nodes. Inthe central posterior aspect of the left breast best appreciated on theleft MLO view there is a collection of three benign appearing breastcalcifications. Digital technology was employed plus computer-aideddetection software (Sitedesk) was utilized in interpretation of these images.This facility utilizes a reminder system to notify patients of yearlymammograms. IMPRESSION: 1. NO DEFINITIVE MAMMOGRAPHIC EVIDENCE OF MALIGNANCY. 2. TWO SMALL ADJACENT NODULAR FOCI IN THE RETROAREOLAR AREA ON THE LEFTTHAT HAVE THE APPEARANCE OF TWO ADJACENT SMALL INTRAMAMMARY LYMPH NODES. 3. ANNUAL FOLLOW UP RECOMMENDED. BI-RADS CATEGORY 2: BENIGN FINDINGS. Interpreting Physician: JARVIS OLVERA M.D. Read on: Mar 13 2013 7:21A Transcribed by: SHABBIR On: Mar 13 2013 10:43A Approved Electronically by: JARVIS OLVERA M.D. on: Mar 13 2013 12:47P Ordering DR: LALITO ESTRADA Attending DR: LALITO ESTRADA [facility] Provider IMDemond MAMMO PROCEDURES Nickie l Result from Last 3 Months or Most Recently Relevant to Health Maintenance Insurance [facility] CHOICE PLUS [facility] HMO/PPO Address: [facility] [address] [place] [address] [facility] CHOICE PLUS [facility] HMO/PPO Address: [address] Care Teams Lead Level Designer Relationship Specialty Start Date End Date Carlos Mckay MD [address] [facility] [address] [place] [address] PCP - General Internal Medicine 02/05/21
--- OUTSIDE RECORDS SUMMARY | 2024-05-28 02:15 | XMS_ITS | Referral Summary ---
Author Organization [facility] [address] Address [address] [place] [address] Care Team Providers Care Kettle Fry Cook Operator Name Role Phone Carlos Mckay MD Primary Care Provider [phone] Allergies No known active allergies Medications warfarin [...] syndrome 09/01/2013 Overview (07/22/2016): Antiphospholipid antibody syndrome Social History Tobacco Use Types Packs/Day Years Used Date Smoking Tobacco: Former Cigarettes Q uit: 04/18/2008 Tobacco Cessation:Counseling Given: Not Answered Comments:Smoking History Packs/day: 1 Packs Alcohol Use Standard Drinks/Week Comments Yes 0 (1 standard drink = 0.6 oz pur e alcohol) Comments Unknown Sex and Gender Information Value Date Recorded Sex Assigned at Not on file Legal Sex Female 11:13 AM FINISHING TRIMMER Gender Identity Not on file Sexual Orientation Not on file Last Filed Vital Signs Vital Sign Reading Time Taken Comments Blood Pressure 152/82 03/24/2022 2:58 PM FINISHING TRIMMER Pulse 80 03/24/2022 2:58 PM FINISHING TRIMMER Temperature 36.6 C (97.9 F) 03/24/2022 2:58 PM FINISHING TRIMMER Respiratory Rate 16 03/24/2022 2:58 PM FINISHING TRIMMER Oxygen Saturation 100% 03/24/2022 2:58 PM FINISHING TRIMMER Inhaled Oxygen Concentration - - Weight 74.4 kg (164 lb) 03/24/2022 2:58 PM FINISHING TRIMMER Height 170.2 cm (5' 7 ) 03/24/2022 2:58 PM FINISHING TRIMMER Body Mass Index 25.69 03/24/2022 2:58 PM FINISHING TRIMMER Plan of Treatment Not on file Procedures Procedure Name Priority Date/Time Associated Diagnosis Comments DIGITAL MAMMOGRAPHY Routine 03/12/2013 3 :40 PM FINISHING TRIMMER from Last 3 Months or Most Recently Relevant to Health Maintenance Results * DIGITAL MAMMOGRAPHY (03/12/2013 3:40 PM FINISHING TRIMMER) Anatomical Region Laterality Modality Breast Mammography 03/12/2013 3:40 PM FINISHING TRIMMER Narrative 03/13/2013 12:47 PM FINISHING TRIMMER Vrl Screening Mamm Bi Acc#: [id number] Performed by: jennifer DATE OF EXAM: Mar [...] - 08/12/2016 Vrl Screening Mamm Bi Acc#: [id number] Performed by: jennifer DATE OF EXAM: Mar [...] Digital technology was employed plus computer-aideddetection software (R2) was utilized in interpretation of these images.This [...] DR: LALITO ESTRADA Attending DR: LALITO ESTRADA Historical Provider MD MENON MAMMO PROCEDURES Nickie l Result from Last 3 Months or Most Recently Relevant to Health Maintenance Insurance [facility] [employer]ICE [employer]US [employer] [place] [facility] CHOICE PLUS [place] [employer] [place] Care Teams Kettle Fry Cook Operator Relationship Specialty Start Date End Date Carlos Mckay MD [address] [place] [address] [place] [address] PCP - General Internal Medicine 02/05/21
--- OUTSIDE RECORDS SUMMARY | 2024-05-28 02:15 | XMS_ITS | Clinical Summary ---
Author Organization [facility] Address [address] [place] [address] Phone Care Team Providers Care Magazine Journalist Name Role Phone Unavailable Unavailable Unavailable Reason for Visit and Chief Complaint PROBLEM VISIT Plan of Treatment No Plan of Treatment [...] Encounters Encounter Provider Location Date Check-In Time Check- Out Time Diagnosis PROBLEM VISIT FANNY JEAN M.D. [facility] HELMINTHOLOGIST 8 8:58AM 10:36AM Clinical Notes Includes: Clinical Notes from this encounter No Clinical Notes Recorded
--- OUTSIDE RECORDS SUMMARY | 2024-05-28 02:15 | XMS_ITS ---
Author Organization [facility] Address [address] [place] [address] Phone Care Team Providers Care Icu Specialist Name Role Phone Unavailable Unavailable Unavailable Plan of Treatment Findings Encounter Date Ordered patient will call r appointment as needed SICK VISIT with CHICHI ASKEW [facility]- 02/26/2020 Last Documented On 0 4:38PM ; [facility] Ordered return to the clinic if condition worsens or new symptoms arise SICK VISIT with CHICHI ASKEW [facility]- 02/26/2020 Last Documented On 0 4:38PM ; [facility] Instructions to patient Instructions for patient Last Documented On 0 4:36PM ; [facility] Assessments Includes: Assessments for all patient encounters No Assessments Recorded Instructions Includes: Instructions for all patient encounters Instructions to patient Instructions for patient Last Documented On 0 4:36PM ; [facility] Medical Equipment - Implanted Devices Includes: Current and historical Devices No Medical Equipment Recorded Medications Administered Includes: Administered Medications in patient's chart No Administered Medications Recorded Results Includes: Results from 05/28/2023 through 05/28/2024 No Results Recorded For Specified Dates History of Present Illness History of Present Illness not supported for this document type No History of Present Illness Recorded Social History Description Last Updated Alcohol social 06/19/2009 Last Documented On 0 8:19AM ; [facility] Exercising regularly 06/19/2009 Last Documented On 0 8:19AM ; [facility] Marital history 06/19/2009 Last Documented On 0 8:19AM ; [facility] Sexually active with 1 partners in the l ast year 06/19/2009 Last Documented On 0 8:19AM ; [facility] Smoking 5 cigs/day 06/19/2009 Last Documented On 0 8:19AM ; [facility] Smoking Status Unknown Medical History Includes: Medical History in patient's chart Description Last Updated Hx of DVT & PE in 1999 ~Hx o f depression ~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 ~Age 8 - eye surgery 06/19/2009 Last Documented On 0 8:19AM ; [facility] 1 living children 06/19/2009 Last Documented On 0 8:19AM ; [facility] 2 miscarriage(s) 06/19/2009 Last Documented On 0 8:19AM ; [facility] Chlamydia 06/19/2009 Last Documented On 0 8:19AM ; [facility] 4 06/19/2009 Last Documented On 0 8:19AM ; [facility] IUD removed 04/09/08 06/19/2009 Last Documented On 0 8:19AM ; [facility] Kidney disease 06/19/2009 Last Documented On 0 8:19AM ; [facility] Last pap smear date 04/09/2008 0 Last Documented On 0 8:19AM ; [facility] LMP: 10/23/2008 06/19/2009 Last Documented On 0 8:19AM ; [facility] Family History Includes: Family History in patient's chart Description Last Updated Family history unchanged 02/26/2020 Last Documented On 0 4:38PM ; [facility] Family history of Cancer 06/19/2009 Last Documented On 0 8:19AM ; [facility] Review of Systems Review of Systems not supported for this document type No Review of Systems Recorded Mental Status Description Oriented to time, place, and person Functional Status No Functional Status Recorded Physical Exam Physical Exam not supported for this document type No Physical Exam Recorded Allergies Includes: Active, inactive, and resolved Allergies No Known Allergies Clinical Notes Includes: Signed Clinical Notes starting from 05/07/2022 No Clinical Notes Recorded
--- OUTSIDE RECORDS SUMMARY | 2024-05-28 02:15 | XMS_ITS | Clinical Summary ---
Author Organization [facility] Address [address] [place] [address] Phone Care Team Providers Care Real Estate Services Administrator Name Role Phone Unavailable Unavailable Unavailable Reason for Visit and Chief Complaint FPC ROUNDS Plan of Treatment No Plan of Treatment Recorded Assessments Includes: Assessments from this encounter No Assessments Recorded Medical Equipment - Implanted Devices Includes: Current Devices No Medical Equipment Recorded Medications Administered Includes: Administered Medications from this encounter No Administered Medications Recorded Vital Signs Includes: Vital Signs from this encounter Vital Name 12/05/2013 03:19P Blood Pressure Sitting (mmHg) 80/52 Pulse Rate-Sitting (bpm) 68 Respiration Rate (breaths/min) 18 Temp-Oral (F) 97.4 Weight (lb) 199.375 Last Documented: On 12/05/2013 3:20PM ; [facility] Results Includes: Results discussed during this encounter [...] Date Check-In Time Check- Out Time Diagnosis FPC ROUNDS ROSEANNE LAMB M.D. [facility] 4 3:19PM 11:59PM Clinical Notes Includes: Clinical Notes from this encounter No Clinical Notes Recorded
--- OUTSIDE RECORDS SUMMARY | 2024-05-28 02:15 | XMS_ITS | Clinical Summary ---
Author Organization [facility] Address [address] [place] [address] Phone Care Team Providers Care Brusher Warp Name Role Phone Unavailable Unavailable Unavailable Reason for Visit and Chief Complaint The Chief Complaint is: PT WAS EXPOSED TO COVID-19, STATES THAT SHE HAS RUNNY NOSE, HEADACHE, FATIGUE, AND SORE THROAT Plan of Treatment - Return to the clinic if condition worsens or new symptoms arise - Last Documented On 02/26/2020 4:38PM ; [facility] - Patient will call for appointment as needed - Last Documented On 02/26/2020 4:38PM ; [facility] Instructions to patient Instructions for patient Last Documented On 0 4:36PM ; [facility] Assessments Includes: Assessments from this encounter No Assessments Recorded Instructions Includes: Instructions from this encounter Instructions to patient Instructions for patient Last Documented On 0 4:36PM ; [facility] Medical Equipment - Implanted Devices Includes: Current Devices No Medical Equipment Recorded Medications Administered Includes: Administered Medications from this encounter No Administered Medications Recorded Vital Signs Includes: Vital Signs from this encounter Vital Name 02/26/2020 02:55P Pulse Rate-Sitting (bpm) 72 Temp-Oral (F) 98.4 Oxygen Saturation (%) 98 Last Documented: On 02/26/2020 2:55PM ; [facility] Results Includes: Results discussed during this encounter Rapid COVID Test [facility] Ordered by CHICHI ASKEW [employer] W[employer]HOUSE SUPERVISOR- on Collected: Reported: 02/26/2020 15:00 Last Documented On 0 3:00PM ; [facility] Reviewed on 02/26/2020; All test results are final unless otherwise noted. Rapid COVId NEG N (Normal) Last Documented On 0 3:00PM ; [facility] Int. QC Acceptable N (Normal) Last Documented On 0 3:00PM ; [facility] Lot # and Exp. Date [id number] 07/04/2020 N (Normal) Last Documented On 0 3:00PM ; [facility] History of Present Illness Includes: History of Present Illness from this encounter HPI KARAN COYLE is a 44 year old female. - Allergy list reviewed - Medication reconciliation performed - Duration of symptoms - Previously well - No fever - No chills - Headache associated with head congestion - No sinus pain - No sinus pressure - No swollen glands in the neck - No itching of the eyes - No discharge from the eyes - Nasal discharge - Sore throat - No earache - The ears do not feel pressured - The ears do not feel full - No discharge from the ears - No postnasal drip - No nasal passage blockage (stuffiness) - No sneezing - No itchy throat - No chest pain or discomfort - No palpitations - Not feeling congested in the chest - No dyspnea - No cough - No wheezing - No rash PT to clinic for above symptoms x 3 days her sisters family has COVID and she was with them a day before they tested positive Social History Description Last Updated Alcohol social 06/19/2009 Last Documented On 0 2:54PM ; [facility] Marital history 06/19/2009 Last Documented On 0 2:54PM ; [facility] Sexually active with 1 partners in the l ast year 06/19/2009 Last Documented On 0 2:54PM ; [facility] Smoking 5 cigs/day 06/19/2009 Last Documented On 0 2:54PM ; [facility] Smoking Status Unknown Procedures and Surgical History Includes: Procedures from this encounter Procedures Code Diagnosis Performing Provider Service L ocation Service Date plan of care reviewed and agreed to by the patient Last Documented On 0 3:11PM ; [facility] review of medications documented [id number] Last Documented On 0 2:55PM ; [facility] Patient verbalizes understanding Last Documented On 0 4:36PM ; [facility] Increase fluids Last Documented On 0 4:36PM ; [facility] Clinical summary provided to patient Last Documented On 0 4:36PM ; [facility] Medical History Includes: Medical History addressed during this encounter Description Last Updated Hx of DVT & PE in 1999 ~Hx o f depression ~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 ~Age 8 - eye surgery 06/19/2009 Last Documented On 0 2:54PM ; [facility] 1 living children 06/19/2009 Last Documented On 0 2:54PM ; [facility] 2 miscarriage(s) 06/19/2009 Last Documented On 0 2:54PM ; [facility] Chlamydia 06/19/2009 Last Documented On 0 2:54PM ; [facility] 4 06/19/2009 Last Documented On 0 2:54PM ; [facility] IUD removed 04/09/08 06/19/2009 Last Documented On 0 2:54PM ; [facility] Kidney disease 06/19/2009 Last Documented On 0 2:54PM ; [facility] Last pap smear date 04/09/2008 0 Last Documented On 0 2:54PM ; [facility] LMP: 10/23/2008 06/19/2009 Last Documented On 0 2:54PM ; [facility] Family History Includes: Family History addressed during this encounter Description Last Updated Family history unchanged 02/26/2020 Last Documented On 0 4:38PM ; [facility] Family history of Cancer 06/19/2009 Last Documented On 0 2:54PM ; [facility] Review of Systems Includes: Review of Systems from this encounter Systemic: No fever and no chills. Head: Headache. Otolaryngeal: Nasal discharge and sore throat. Mental Status Includes: Mental Status from this encounter Description Oriented to time, place, and person Functional Status Includes: Functional Status from this encounter No Functional Status Recorded Physical Exam Includes: Physical Exam from this encounter Allergies Includes: Active Allergies No Known Allergies Encounters Encounter Provider Location Date Check-In Time Check-Out Time Diagnosis SICK VISIT CHICHI ASKEW [employer] SUPER[employer]OR-[facility] 0 2:45PM 2:59PM Clinical Notes Includes: Clinical Notes from this encounter No Clinical Notes Recorded
[2024-05-28 07:22] VITALS: BP 133/74; PULSE 82; RESP 18; TEMP 36.8; O2SAT 100
[2024-05-28 07:28] LABS: BEDSIDEPREGUCG Negative (Negative)
[2024-05-28] MEDS: LACTATED RINGERS 1,000 ML 150 ML IV CONT (07:34)
--- NOTE | 2024-05-28 07:49 | P.PNAN_ITS ---
Anes - Initial Pre Proc Eval Procedure: Operation Date: 05/28/24 08:30 Proposed Procedures p Screening Colonoscopy - Mohit Ott MD Date/Time: 05/28/24 07:49 Surgeon: Mohit Ott MD Pre Op Diagnosis: screening malignant neoplasm colon Patient Data Age: 48 Gender: F Height: 1.73 m Weight: 74.9 kg Last Vital Signs Temp 98.2 F 05/28/24 07:22 Pulse 82 05/28/24 07:22 Resp 18 05/28/24 07:22 BP 133/74 05/28/24 07:22 Pulse Ox 100 05/28/24 07:22 O2 Del Method Room Air 05/28/24 07:22 Allergies Allergy/AdvReac Type Severity Reaction Status Date / Time No Known Allergies Allergy Unknown Verified 05/21/24 07:03 Home Medications ?Medication ?Instructions ?Recorded ?Confirmed ?Type warfarin 10 mg tablet (Jantoven) 10 mg PO DAILY #90 tabs 02/09/21 05/28/24 Rx phentermine 37.5 mg tablet 18.75 mg (1/2 x 37.5 mg) PO DAILY 11/01/23 05/28/24 Rx #30 tabs triamterene 37.5 See Rx Instructions .Route 01/12/24 05/21/24 Rx mg-hydrochlorothiazide 25 mg tablet .COMPLEX #30 tabs warfarin 2 mg tablet See Rx Instructions .Route 02/20/24 05/28/24 Rx .COMPLEX #90 tabs warfarin 5 mg tablet See Rx Instructions .Route 04/25/24 05/28/24 Rx .COMPLEX #180 tabs enoxaparin 80 mg/0.8 mL 80 mg (0.8 mL) subcut Q12H #4 05/21/24 05/28/24 Rx subcutaneous syringe (Lovenox) syringes atorvastatin 20 mg tablet See Rx Instructions .Route 05/24/24 05/28/24 Rx .COMPLEX #30 tabs bupropion HCl 300 mg 24 hr tablet, See Rx Instructions .Route 05/24/24 05/28/24 Rx extended release .COMPLEX #30 tabs Laboratory Tests 05/28/24 07:22 POC Urine HCG, Qual Negative (Negative) Patient hx anesthesia problems: none Family hx anesthesia problems: none Results Review: All pre-operative results and documents have been reviewed as part of the pre- operative evaluation. [facility] Past Medical History Medical History Elevated blood pressure reading without diagnosis of hypertension Preoperative clearance Breast mass, right Environmental allergies BMI 24.0-24.9, adult Encounter for routine adult health examination with abnormal findings Paronychia of finger Hair loss BMI 25.0-25.9,adult Dyslipidemia BMI 28.0-28.9,adult Encounter for routine adult health examination without abnormal findings Chronic low back pain Rhinorrhea BMI 27.0-27.9,adult Sore throat Post-phlebitic syndrome Venous insufficiency BMI 26.0-26.9,adult Follow up On retirement drug therapy Pain and swelling of right lower leg Social History Social History Smoking packs per day: 1 Smoking cigarettes per day: 20.0 Years smoked: 12 Smoking pack-years: 12.00 Smoking status: Former smoker Tobacco type: cigarettes Smoking end date: 04/18/08 Alcohol intake: never Substance use type: does not use Lack of Transportation: No Lack of Food: Never True Current Housing: I Have Housing Concerned About Future Housing: No Difficulty Paying Gas/Electric Bills: No Difficulty Paying for Meds: No Currently Unemployed: No Education: High School Diploma/GED Difficulty w/ Childcare or Family Care: No Living arrangements: with family Occupation/Education: occupation Gender identity (if verbalized by the patient): Female Spiritual care concerns: No Anes - Eval Final PreProcedure Day of Procedure 05/28/24 07:49 Patient weight: normal Lungs: normal air movement Airway: Mallampati scale class II Neurological: alert and oriented Last oral intake: >/= 8 hours ASA classification: III Emergent: no Anesthetic plan: proceed Anesthesia type and monitoring: general GIVS and standard monitoring Results Review: All pre-operative results and documents have been reviewed as part of the pre- operative evaluation. Hx of DVT/PE approx , bridged approp w lovenox, last dose Sat pm. Informed Consent: The patient's anesthetic plan and its attendant risks and benefits were discussed with the patient/family/POA. Questions were solicited and answers provided to the satisfaction of the patient/family/POA.
--- NOTE | 2024-05-28 07:55 | PM.HPGS ---
History of Present Illness History of Present Illness Consent: Risks, benefits, and alternatives have been discussed and questions answered. Patient agrees to proceed with procedure. Chief complaint: screening malignant neoplasm colon Narrative: Sylvia Miranda is a 48 year old female here for screening colonoscopy, last one 2016 Review of Systems Review of Systems: All systems reviewed & are unremarkable except as noted in HPI and below PMFSH Past Medical History Medical History (Updated 05/28/24 @ 08:00 by Mohit Ott MD) Colon cancer screening Elevated blood pressure reading without diagnosis of hypertension Preoperative clearance Breast mass, right Environmental allergies BMI 24.0-24.9, adult Encounter for routine adult health examination with abnormal findings Paronychia of finger Hair loss BMI 25.0-25.9,adult Dyslipidemia BMI 28.0-28.9,adult Encounter for routine adult health examination without abnormal findings Chronic low back pain Rhinorrhea BMI 27.0-27.9,adult Sore throat Post-phlebitic syndrome Venous insufficiency BMI 26.0-26.9,adult Follow up On senior care drug therapy Pain and swelling of right lower leg Social History Social History Smoking packs per day: 1 Smoking cigarettes per day: 20.0 Years smoked: 12 Smoking pack-years: 12.00 Smoking status: Former smoker Tobacco type: cigarettes Smoking end date: 04/18/08 Alcohol intake: never Substance use type: does not use Lack of Transportation: No Lack of Food: Never True Current Housing: I Have Housing Concerned About Future Housing: No Difficulty Paying Gas/Electric Bills: No Difficulty Paying for Meds: No Currently Unemployed: No Education: High School Diploma/GED Difficulty w/ Childcare or Family Care: No Living arrangements: with family Occupation/Education: occupation Gender identity (if verbalized by the patient): Female Spiritual care concerns: No Meds Home Medications and Allergies Home Medications ?Medication ?Instructions ?Recorded ?Confirmed ?Type warfarin 10 mg tablet (Jantoven) 10 mg PO DAILY #90 tabs 02/09/21 05/28/24 Rx phentermine 37.5 mg tablet 18.75 mg (1/2 x 37.5 mg) PO DAILY 11/01/23 05/28/24 Rx #30 tabs triamterene 37.5 See Rx Instructions .Route 01/12/24 05/21/24 Rx mg-hydrochlorothiazide 25 mg tablet .COMPLEX #30 tabs warfarin 2 mg tablet See Rx Instructions .Route 02/20/24 05/28/24 Rx .COMPLEX #90 tabs warfarin 5 mg tablet See Rx Instructions .Route 04/25/24 05/28/24 Rx .COMPLEX #180 tabs enoxaparin 80 mg/0.8 mL 80 mg (0.8 mL) subcut Q12H #4 05/21/24 05/28/24 Rx subcutaneous syringe (Lovenox) syringes atorvastatin 20 mg tablet See Rx Instructions .Route 05/24/24 05/28/24 Rx .COMPLEX #30 tabs bupropion HCl 300 mg 24 hr tablet, See Rx Instructions .Route 05/24/24 05/28/24 Rx extended release .COMPLEX #30 tabs Allergies Allergy/AdvReac Type Severity Reaction Status Date / Time No Known Allergies Allergy Unknown Verified 05/21/24 07:03 Vital Signs Vital Signs - 24 hr 05/28/24 07:22 Temperature 98.2 F Pulse Rate 82 Respiratory Rate 18 Blood Pressure 133/74 Pulse Oximetry 100 Oxygen Delivery Room Air Exam Const: General: comfortable and no acute distress HENMT: Face/Nose/Sinus: Normal nares present Eyes: General: appearance normal, both eyes and all related structures Neck: Neck: no JVD Resp: Auscultation: clear to auscultation bilaterally Cardio: Rate: regular rate Rhythm: regular rhythm GI: Inspection: non-distended GI Palp: Yes Soft to palpation Skin: General skin exam: normal color Neuro: General: gait normal Speech: normal speech Extrem: General: normal to inspection Psych: Mental Status: mental status grossly normal Assessment and Plan Assessment and plan (1) Colon cancer screening: Code(s): Z12.11 - Encounter for screening for malignant neoplasm of colon Status: Acute Assessment and Plan: colonoscopy
[2024-05-28 08:18] VITALS: BP 142/78; PULSE 66; RESP 15; O2SAT 100
[2024-05-28 08:28] VITALS: BP 120/83; PULSE 63; RESP 17; O2SAT 100
[2024-05-28 08:38] VITALS: BP 120/79; PULSE 57; RESP 18; O2SAT 100
== END 2024-05-28 08:45 | disposition home or self-care (01) ==
PROVIDERS: Anesthesiology; PCP Internal Medicine; Visit Provider Internal Medicine Gastroenterology
PROC: 0DJD8ZZ Inspection of Lower Intestinal Tract, Via Natural or Artificial Opening Endoscopic (ICD-10-PCS; CPT 45378; principal; 2024-05-28 08:30)
DX: Z12.11 Encounter for screening for malignant neoplasm of colon (principal); K64.8 Other hemorrhoids; Z87.891 Personal history of nicotine dependence
CPT/HCPCS: 45378; J2003; J2704; J7120

== ENCOUNTER 2024-06-06 09:16 | Outpatient (CLI) | payer OTHER, BC, SELFPAY ==
--- NOTE | ~2024-06-06 | US_ITS ---
US breast RT limited 06/06/2024 09:42 Indication: Palpable right breast abnormality. Recent normal screening mammogram. Procedure: High-resolution Limited ultrasound of the right breast Comparison: Mammogram dated 05/16/2024 Findings: Normal heterogeneous echotexture without focal solid or cystic mass. Impression: 1: Normal limited right breast ultrasound. Routine yearly screening mammogram and regular clinical breast examination are recommended. BI-RADS CATEGORY 1 - NEGATIVE Reviewed, dictated and finalized at location [] ITAL RECEPTIONIST Impression: 1: Normal limited right breast ultrasound. Routine yearly screening mammogram and regular clinical breast examination are recommended. BI-RADS CATEGORY 1 - NEGATIVE
== END 2024-06-06 09:17 | disposition home or self-care (01) ==
LOC: MICIMG 09:17
PROVIDERS: PCP Internal Medicine; Visit Provider Internal Medicine
DX: N63.10 Unspecified lump in the right breast, unspecified quadrant (principal)
CPT/HCPCS: 76642

== ENCOUNTER 2024-06-26 10:05 | Emergency (ER) | payer OTHER, BC, SELFPAY ==
--- NOTE | ~2024-06-26 | CT_ITS ---
EXAMINATION: CT brain wo con DATE: 06/26/2024 10:23 INDICATION: Head injury. TECHNIQUE: Computed tomography (CT) of the head was performed without intravenous contrast. The mA wa s adjusted according to patient size. Iterative reconstruction technique was employed. The dose-lengt h product was 529.67 mGy-cm. COMPARISON: None FINDINGS: There is no intracranial hemorrhage, acute infarction, or abnormal intracranial mass lesion . The ventricles are normal in size. The orbits are normal. There is mild mucosal thickening in the p aranasal sinuses. The mastoid air cells are normal. IMPRESSION: 1. Normal brain. Reviewed, dictated and finalized at location B. IMPRESSION: 1. Normal brain.
[2024-06-26 10:08] VITALS: BP 137/80; PULSE 78; RESP 16; TEMP 36.6; O2SAT 100
--- OUTSIDE RECORDS SUMMARY | 2024-06-26 11:25 | XMS_ITS ---
Care Plan - [facility] Created on: June 26, 2024 KARAN COYLE : 1975 Sex: Female Author Organization [facility] Address [address] [place] [address] Phone Care Team Providers Care Design Cell Engineer Name Role Phone Unavailable Unavailable Unavailable
--- OUTSIDE RECORDS SUMMARY | 2024-06-26 11:25 | XMS_ITS | Referral Summary ---
Author Organization [facility] [place] [address] Address [address] [place] [address] Care Team Providers Care Technical Support Director Name Role Phone Carlos Mckay MD Primary Care Provider [phone] Allergies No known active allergies Medications warfarin [...] on file Legal Sex Female 11:13 AM AGRONOMY SPECIALIST Gender Identity Not on file Sexual Orientation Not on file Last Filed Vital Signs Vital Sign Reading Time Taken Comments Blood Pressure 152/82 03/24/2022 2:58 PM AGRONOMY SPECIALIST Pulse 80 03/24/2022 2:58 PM AGRONOMY SPECIALIST Temperature 36.6 C (97.9 F) 03/24/2022 2:58 PM AGRONOMY SPECIALIST Respiratory Rate 16 03/24/2022 2:58 PM AGRONOMY SPECIALIST Oxygen Saturation 100% 03/24/2022 2:58 PM AGRONOMY SPECIALIST Inhaled Oxygen Concentration - - Weight 74.4 kg (164 lb) 03/24/2022 2:58 PM AGRONOMY SPECIALIST Height 170.2 cm (5' 7 ) 03/24/2022 2:58 PM AGRONOMY SPECIALIST Body Mass Index 25.69 03/24/2022 2:58 PM AGRONOMY SPECIALIST Plan of Treatment Not on file Procedures Procedure Name Priority Date/Time Associated Diagnosis Comments DIGITAL MAMMOGRAPHY Routine 03/12/2013 3 :40 PM AGRONOMY SPECIALIST from Last 3 Months or Most Recently Relevant to Health Maintenance Results * DIGITAL MAMMOGRAPHY (03/12/2013 3:40 PM AGRONOMY SPECIALIST) Anatomical Region Laterality Modality Breast Mammography 03/12/2013 3:40 PM AGRONOMY SPECIALIST Narrative 03/13/2013 12:47 PM AGRONOMY SPECIALIST Vrl Screening Mamm Bi Acc#: [id number] Performed by: jennifer DATE OF EXAM: Mar [...] - 08/12/2016 Vrl Screening Mamm Bi Acc#: [id number] Performed by: jennifer DATE OF EXAM: Mar [...] Most Recently Relevant to Health Maintenance Insurance [facility] CHO[place] [facility] CHO[facility] PLUS [place] [place] Care Teams Technical Support Director Relationship Specialty Start Date End Date Carlos Mckay MD [address] [place] [address] PCP - General Internal Medicine 02/05/21
--- OUTSIDE RECORDS SUMMARY | 2024-06-26 11:25 | XMS_ITS | Clinical Summary ---
Author Organization [facility] Address [address] [place] [address] Phone Care Team Providers Care Tube Sizer Operator Name Role Phone Unavailable Unavailable Unavailable [...] Time Diagnosis PROBLEM VISIT FANNY JEAN M.D. [facility] MANAGER GALLERY 8 8:58AM 10:36AM Clinical Notes Includes: Clinical Notes from this encounter No Clinical Notes Recorded
--- OUTSIDE RECORDS SUMMARY | 2024-06-26 11:25 | XMS_ITS | Clinical Summary ---
Author Organization [facility] [place] [address] Address [address] [place] [address] Care Team Providers Care Tool Grinder Set Up Operator Gear Name Role Phone Carlos Mckay MD Primary Care Provider [phone] Allergies No known active allergies Medications warfarin [...] on file Legal Sex Female 11:13 AM HAND STAPLER Gender Identity Not on file Sexual Orientation Not on file Obstetrics History Last Filed Vital Signs Vital Sign Reading Time Taken Comments Blood Pressure 152/82 03/24/2022 2:58 PM HAND STAPLER Pulse 80 03/24/2022 2:58 PM HAND STAPLER Temperature 36.6 C (97.9 F) 03/24/2022 2:58 PM HAND STAPLER Respiratory Rate 16 03/24/2022 2:58 PM HAND STAPLER Oxygen Saturation 100% 03/24/2022 2:58 PM HAND STAPLER Inhaled Oxygen Concentration - - Weight 74.4 kg (164 lb) 03/24/2022 2:58 PM HAND STAPLER Height 170.2 cm (5' 7 ) 03/24/2022 2:58 PM HAND STAPLER Body Mass Index 25.69 03/24/2022 2:58 PM HAND STAPLER Plan of Treatment Health Maintenance Due Date [...] DIGITAL MAMMOGRAPHY Routine 03/12/2013 3 :40 PM HAND STAPLER from Last 3 Months or Most Recently Relevant to Health Maintenance Results * DIGITAL MAMMOGRAPHY (03/12/2013 3:40 PM HAND STAPLER) Anatomical Region Laterality Modality Breast Mammography 03/12/2013 3:40 PM HAND STAPLER Narrative 03/13/2013 12:47 PM HAND STAPLER Vrl Screening Mamm Bi Acc#: [id number] Performed by: jennifer DATE OF EXAM: Mar [...] Mar 13 2013 10:43A Approved Electronically by: JAVRIS OLVERA M.D. on: Mar 13 2013 12:47P Ordering DR: LALITO ESTRADA Attending DR: LALITO ESTRADA Procedure Note Provider, MD Mello - 08/12/2016 Vrl Screening Mamm Bi Acc#: [id number] Performed by: jennifer DATE OF EXAM: Mar [...] Digital technology was employed plus computer-aideddetection software (Motom[employer]) was utilized in interpretation of these images.This [...] DR: LALITO ESTRADA Attending DR: LALITO ESTRADA [facility] Provider IMDemond MAMMO PROCEDURES Nickie l Result from Last 3 Months or Most Recently Relevant to Health Maintenance Insurance [facility] CHOICE PLUS [facility] CHOICE PLUS [address] Care Teams Tool Grinder Set Up Operator Gear Relationship Specialty Start Date End Date Carlos Mckay MD [address] [facility] [address] [place] [address] PCP - General Internal Medicine 02/05/21
--- OUTSIDE RECORDS SUMMARY | 2024-06-26 11:25 | XMS_ITS | Clinical Summary ---
Author Organization [facility] Address [address] [place] [address] Phone Care Team Providers Care Extension Professor Name Role Phone Unavailable Unavailable Unavailable Reason for Visit and Chief Complaint RESIDENTIAL ROUNDS Plan of Treatment No Plan of [...] 199.375 Last Documented: On 12/05/2013 3:20PM ; [facility] Results Includes: Results discussed during this encounter [...] Date Check-In Time Check- Out Time Diagnosis RESIDENTIAL ROUNDS ROSEANNE LAMB M.D. [facility] 4 3:19PM 11:59PM Clinical Notes Includes: Clinical Notes from this encounter No Clinical Notes Recorded
--- OUTSIDE RECORDS SUMMARY | 2024-06-26 11:26 | XMS_ITS | Clinical Summary ---
Author Organization [facility] Address [address] [place] [address] Phone Care Team Providers Care Ebay Reseller Name Role Phone Unavailable Unavailable Unavailable Reason for Visit and Chief Complaint The Chief Complaint is: PT WAS EXPOSED TO COVID-19, STATES THAT SHE HAS RUNNY NOSE, HEADACHE, FATIGUE, AND SORE THROAT Plan of Treatment - Return to the clinic if condition worsens or new symptoms arise - Last Documented On 02/26/2020 4:38PM ; [facility] - Patient will call for appointment as needed - Last Documented On 02/26/2020 4:38PM ; [facility] Instructions to patient Instructions for patient Last Documented On 0 4:36PM ; [facility] Assessments Includes: Assessments from this encounter No Assessments Recorded Instructions Includes: Instructions from this encounter Instructions to patient Instructions for patient Last Documented On 0 4:36PM ; [facility] Medical Equipment - Implanted Devices Includes: Current Devices No Medical Equipment Recorded Medications Administered Includes: Administered Medications from this encounter No Administered Medications Recorded Vital Signs Includes: Vital Signs from this encounter Vital Name 02/26/2020 02:55P Pulse Rate-Sitting (bpm) 72 Temp-Oral (F) 98.4 Oxygen Saturation (%) 98 Last Documented: On 02/26/2020 2:55PM ; [facility] Results Includes: Results discussed during this encounter Rapid COVID Test [facility] Ordered by CHICHI ASKEW STAFFING RN- on Collected: Reported: 02/26/2020 15:00 Last Documented On 0 3:00PM ; [facility] Reviewed on 02/26/2020; All test results are final unless otherwise noted. Rapid COVId NEG N (Normal) Last Documented On 0 3:00PM ; [facility] Int. QC Acceptable N (Normal) Last Documented On 0 3:00PM ; [facility] Lot # and Exp. Date [id number] 07/04/2020 N (Normal) Last Documented On 0 3:00PM ; [facility] History of Present Illness [...] 06/19/2009 Last Documented On 0 2:54PM ; [facility] Marital history 06/19/2009 Last Documented On 0 2:54PM ; [facility] Sexually active with 1 partners in the l ast year 06/19/2009 Last Documented On 0 2:54PM ; [facility] Smoking 5 cigs/day 06/19/2009 Last Documented On 0 2:54PM ; [facility] Smoking Status Unknown Procedures and Surgical History Includes: Procedures from this encounter Procedures Code Diagnosis Performing Provider Service L ocation Service Date plan of care reviewed and agreed to by the patient Last Documented On 0 3:11PM ; [facility] review of medications documented 1160F Last Documented On 0 2:55PM ; [facility] Patient verbalizes understanding Last Documented On 0 4:36PM ; [facility] Increase fluids Last Documented On 0 4:36PM ; [facility] Clinical summary provided to patient Last Documented On 0 4:36PM ; [facility] Medical History Includes: Medical History addressed during this encounter Description Last Updated Hx of DVT & PE in 1999 ~Hx o f depression ~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 ~Age 8 - eye surgery 06/19/2009 Last Documented On 0 2:54PM ; [facility] 1 living children 06/19/2009 Last Documented On 0 2:54PM ; [facility] 2 miscarriage(s) 06/19/2009 Last Documented On 0 2:54PM ; [facility] Chlamydia 06/19/2009 Last Documented On 0 2:54PM ; [facility] 4 06/19/2009 Last Documented On 0 2:54PM ; [facility] IUD removed 04/09/08 06/19/2009 Last Documented On 0 2:54PM ; [facility] Kidney disease 06/19/2009 Last Documented On 0 2:54PM ; [facility] Last pap smear date 04/09/2008 0 Last Documented On 0 2:54PM ; [facility] LMP: 10/23/2008 06/19/2009 Last Documented On 0 2:54PM ; [facility] Family History Includes: Family History addressed during this encounter Description Last Updated Family history unchanged 02/26/2020 Last Documented On 0 4:38PM ; [facility] Family history of Cancer 06/19/2009 Last Documented On 0 2:54PM ; [facility] Review of Systems Includes: Review of [...] Check-Out Time Diagnosis SICK VISIT CHICHI ASKEW STAFFING RN-BC [facility] 0 2:45PM 2:59PM Clinical Notes Includes: Clinical Notes from this encounter No Clinical Notes Recorded
--- OUTSIDE RECORDS SUMMARY | 2024-06-26 11:26 | XMS_ITS | Clinical Summary ---
Author Organization [facility] Address [address] [place] [address] Phone Care Team Providers Care Facing Slitter Name Role Phone Unavailable Unavailable Unavailable Reason [...] M.D. [facility] MICROFILM DUPLICATING UNIT SUPERVISOR 7 5:24PM 6:02PM Clinical Notes Includes: Clinical Notes from this encounter No Clinical Notes Recorded
--- OUTSIDE RECORDS SUMMARY | 2024-06-26 11:26 | XMS_ITS | Clinical Summary ---
Author Organization [facility] Address [address] [place] [address] Phone Care Team Providers Care Silk Spotter Name Role Phone Unavailable Unavailable Unavailable Reason [...] 06/19/2009 Last Documented On 0 8:19AM ; [facility] Exercising regularly 06/19/2009 Last Documented On 0 8:19AM ; [facility] Marital history 06/19/2009 Last Documented On 0 8:19AM ; [facility] Sexually active with 1 partners in the l ast year 06/19/2009 Last Documented On 0 8:19AM ; [facility] Smoking 5 cigs/day 06/19/2009 Last Documented On 0 8:19AM ; [facility] Smoking Status Unknown Medical History Includes: Medical History addressed during this encounter Description Last Updated Hx of DVT & PE in 1999 ~Hx o f depression ~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 ~Age 8 - eye surgery 06/19/2009 Last Documented On 0 8:19AM ; [facility] 1 living children 06/19/2009 Last Documented On 0 8:19AM ; [facility] 2 miscarriage(s) 06/19/2009 Last Documented On 0 8:19AM ; [facility] Chlamydia 06/19/2009 Last Documented On 0 8:19AM ; [facility] 4 06/19/2009 Last Documented On 0 8:19AM ; [facility] IUD removed 04/09/08 06/19/2009 Last Documented On 0 8:19AM ; [facility] Kidney disease 06/19/2009 Last Documented On 0 8:19AM ; [facility] Last pap smear date 04/09/2008 0 Last Documented On 0 8:19AM ; [facility] LMP: 10/23/2008 06/19/2009 Last Documented On 0 8:19AM ; [facility] Family History Includes: Family History addressed during this encounter Description Last Updated Family history of Cancer 06/19/2009 Last Documented On 0 8:19AM ; [facility] Review of Systems Includes: Review of Systems [...] Time Diagnosis CHART UPDATE FANNY JEAN M.D. [facility] MACHINE PECAN GATHERER 0 8:11AM 11:59PM Clinical Notes Includes: Clinical Notes from this encounter No Clinical Notes Recorded
--- OUTSIDE RECORDS SUMMARY | 2024-06-26 11:26 | XMS_ITS ---
Author Organization [facility] Address [address] [place] [address] Phone Care Team Providers Care Entry Level Software Developer Name Role Phone Unavailable Unavailable Unavailable Plan of Treatment Findings Encounter Date Ordered patient will call r appointment as needed SICK VISIT with CHICHI ASKEW [facility]- 02/26/2020 Last Documented On 0 4:38PM ; [facility] Ordered return to the clinic if condition worsens or new symptoms arise SICK VISIT with CHICHI ASKEW [facility]- 02/26/2020 Last Documented On 0 4:38PM ; [facility] Instructions to patient Instructions for patient Last Documented On 0 4:36PM ; [facility] Assessments Includes: Assessments for all patient encounters No Assessments Recorded Instructions Includes: Instructions for all patient encounters Instructions to patient Instructions for patient Last Documented On 0 4:36PM ; [facility] Medical Equipment - Implanted Devices Includes: Current and historical Devices No Medical Equipment Recorded Medications Administered Includes: Administered Medications in patient's chart No Administered Medications Recorded Results Includes: Results from 06/27/2023 through 06/26/2024 No Results Recorded For Specified Dates History of Present Illness History of Present Illness not supported for this document type No History of Present Illness Recorded Social History Description Last Updated Alcohol social 06/19/2009 Last Documented On 0 8:19AM ; [facility] Exercising regularly 06/19/2009 Last Documented On 0 8:19AM ; [facility] Marital history 06/19/2009 Last Documented On 0 8:19AM ; [facility] Sexually active with 1 partners in the l ast year 06/19/2009 Last Documented On 0 8:19AM ; [facility] Smoking 5 cigs/day 06/19/2009 Last Documented On 0 8:19AM ; [facility] Smoking Status Unknown Medical History Includes: Medical History in patient's chart Description Last Updated Hx of DVT & PE in 1999 ~Hx o f depression ~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 ~Age 8 - eye surgery 06/19/2009 Last Documented On 0 8:19AM ; [facility] 1 living children 06/19/2009 Last Documented On 0 8:19AM ; [facility] 2 miscarriage(s) 06/19/2009 Last Documented On 0 8:19AM ; [facility] Chlamydia 06/19/2009 Last Documented On 0 8:19AM ; [facility] 4 06/19/2009 Last Documented On 0 8:19AM ; [facility] IUD removed 04/09/08 06/19/2009 Last Documented On 0 8:19AM ; [facility] Kidney disease 06/19/2009 Last Documented On 0 8:19AM ; [facility] Last pap smear date 04/09/2008 0 Last Documented On 0 8:19AM ; [facility] LMP: 10/23/2008 06/19/2009 Last Documented On 0 8:19AM ; [facility] Family History Includes: Family History in patient's chart Description Last Updated Family history unchanged 02/26/2020 Last Documented On 0 4:38PM ; [facility] Family history of Cancer 06/19/2009 Last Documented On 0 8:19AM ; [facility] Review of Systems Review of Systems not [...]
--- NOTE | 2024-06-26 11:27 | ED.HEATRA ---
HPI - Head Injury General Chief complaint: Head Injury Stated complaint: hit head while taking shower Time Seen by Provider: 06/26/24 11:04 Source: patient Mode of arrival: ambulatory Limitations: no limitations History of Present Illness HPI Narrative: This is a 48-year-old female that presents to the emergency department after a head injury this morning. Reports she stood up quickly and hit her head on the shower faucet. Reports she has had some headache, nausea, lightheadedness since. She does take warfarin which prompted her to be seen. Denies vision changes, vomiting, numbness, weakness. Related Data Allergies Allergy/AdvReac Type Severity Reaction Status Date / Time No Known Allergies Allergy Unknown Verified 06/18/24 07:06 Review of Systems Review of Systems: CONSTITUTIONAL: Denies fever EYES: Denies visual changes GASTROINTESTINAL: Denies vomiting NEUROLOGIC: Reports headache. Denies numbness, or weakness. All systems reviewed & are unremarkable except as noted in HPI and below PMFSH Past Medical History Medical History (Updated 06/26/24 @ 11:28 by Yarely Daniel PA-C) Hot flashes Colon cancer screening Elevated blood pressure reading without diagnosis of hypertension Preoperative clearance Breast mass, right Environmental allergies BMI 24.0-24.9, adult Encounter for routine adult health examination with abnormal findings Paronychia of finger Hair loss BMI 25.0-25.9,adult Dyslipidemia BMI 28.0-28.9,adult Encounter for routine adult health examination without abnormal findings Chronic low back pain Rhinorrhea BMI 27.0-27.9,adult Sore throat Post-phlebitic syndrome Venous insufficiency BMI 26.0-26.9,adult Follow up On manager terminal drug therapy Pain and swelling of right lower leg Social History Social History Smoking packs per day: 1 Smoking cigarettes per day: 20.0 Years smoked: 12 Smoking pack-years: 12.00 Smoking status: Former smoker Tobacco type: cigarettes Smoking end date: 04/18/08 Alcohol intake: never Substance use type: does not use Lack of Transportation: No Lack of Food: Never True Current Housing: I Have Housing Concerned About Future Housing: No Difficulty Paying Gas/Electric Bills: No Difficulty Paying for Meds: No Currently Unemployed: No Education: High School Diploma/GED Difficulty w/ Childcare or Family Care: No Living arrangements: with family Occupation/Education: occupation Gender identity (if verbalized by the patient): Female Spiritual care concerns: No Exam Narrative: GENERAL: Well-appearing, well-nourished, and in no acute distress. HEAD: Normocephalic, atraumatic. EYES: PERRLA and EOMI. ENT: Nares clear, no rhinorrhea or epistaxis. Mucous membranes moist. Oropharynx without tonsillar hypertrophy exudate or other lesions. Bilateral TMs pearly brito non-bulging NECK: Supple. No adenopathy or masses. CHEST: Clear to auscultation. No respiratory distress. No wheezes rales or rhonchi HEART: Regular rate and rhythm. No murmur heard. Normal peripheral pulses. EXTREMITIES: Normal range of motion. No edema. Strength equal in bilateral upper and lower extremities (5/5) SKIN: Warm, dry, no rash. NEURO: No focal deficits. Alert and oriented x3. CN II-XII grossly intact PSYCH: Normal mood and affect Course Course Emergency Course: Patient updated on her workup and agrees with plan of care Vital Signs Vital signs: Vital Signs Temperature 97.9 F 06/26/24 10:08 Pulse Rate 78 06/26/24 10:08 Respiratory Rate 16 06/26/24 10:08 Blood Pressure 137/80 06/26/24 10:08 Pulse Oximetry 100 06/26/24 10:08 Oxygen Delivery Room Air 06/26/24 10:08 Temperature 97.9 F 06/26/24 10:08 Pulse Rate 78 06/26/24 10:08 Respiratory Rate 16 06/26/24 10:08 Blood Pressure 137/80 06/26/24 10:08 Pulse Oximetry 100 06/26/24 10:08 Oxygen Delivery Room Air 06/26/24 10:08 MDM - Head Injury MDM Narrative Medical decision making narrative: Patient presents to the emergency department after a head injury with headache, nausea, lightheadedness. Her vitals are stable. She is neurologically intact. CT brain without acute findings. Patient updated on her workup and agrees with plan of care. She is to follow up with primary provider. She was given warnings to return to the ER Differential Diagnosis Differential diagnosis: Likely concussion without loss of consciousness, closed head injury and subdural hematoma Imaging Data Radiologist's impression: ITS Impressions Head CT 06/26/24 10:29 IMPRESSION: 1. Normal brain. Critical Care Time Critical Care Time Critical Care Time: No Discharge Plan Discharge Clinical Impression: Head injury Qualifiers: Encounter type: initial encounter Qualified Code(s): S09.90XA - Unspecified injury of head, initial encounter Patient Disposition: Home, Self-Care Condition: Stable Instructions: Concussion (ED) Additional Instructions: Return to the emergency department if you experience fever, vision changes, vomiting, weakness, numbness, or any other symptoms that are concerning to you. Rest. Remain well hydrated. [id number] pain medication as needed Follow up with primary care doctor Patient Language: Citizen Of [place] Prescriptions: No Action warfarin [Aprtoven] 10 mg tablet 10 mg PO DAILY Qty: 90 1RF Protocol: Dose Management Condition: Tuesday Dose/Route: 10 mg Instruction: 1 x 10 mg tablet Condition: Tuesday Dose/Route: 10 mg Instruction: 1 x 10 mg tablet Condition: Tuesday Dose/Route: 10 mg Instruction: 1 x 10 mg tablet Condition: Tuesday Dose/Route: 10 mg Instruction: 1 x 10 mg tablet Condition: Dose/Route: 10 mg Instruction: 1 x 10 mg tablet Condition: Tuesday Dose/Route: 10 mg Instruction: 1 x 10 mg tablet Condition: Tuesday Dose/Route: 10 mg Instruction: 1 x 10 mg tablet Protocol Text: Adjustment Start Date: Tuesday06/18/24 INR Value: 2.1 INR Date: 06/18/24 Recheck Date: 06/25/24 Additional Instructions: Per TCK, patient informed to keep same dose and recheck in 1 week. warfarin 2 mg tablet See Rx Instructions .ROUTE .COMPLEX Qty: 90 0RF Protocol: Dose Management Condition: Tuesday Dose/Route: 10 mg Instruction: 1 x 10 mg tablet Condition: Tuesday Dose/Route: 10 mg Instruction: 1 x 10 mg tablet Condition: Tuesday Dose/Route: 10 mg Instruction: 1 x 10 mg tablet Condition: Tuesday Dose/Route: 10 mg Instruction: 1 x 10 mg tablet Condition: Dose/Route: 10 mg Instruction: 1 x 10 mg tablet Condition: Tuesday Dose/Route: 10 mg Instruction: 1 x 10 mg tablet Condition: Tuesday Dose/Route: 10 mg Instruction: 1 x 10 mg tablet Protocol Text: Adjustment Start Date: Tuesday06/18/24 INR Value: 2.1 INR Date: 06/18/24 Recheck Date: 06/25/24 Additional Instructions: Per TCK, patient informed to keep same dose and recheck in 1 week. Dose Instruction: TAKE 1 TABLET BY MOUTH DAILY Rx Instructions: TAKE 1 TABLET BY MOUTH DAILY warfarin 5 mg tablet See Rx Instructions .ROUTE .COMPLEX Qty: 180 0RF Protocol: Dose Management Condition: Tuesday Dose/Route: 10 mg Instruction: 1 x 10 mg tablet Condition: Tuesday Dose/Route: 10 mg Instruction: 1 x 10 mg tablet Condition: Tuesday Dose/Route: 10 mg Instruction: 1 x 10 mg tablet Condition: Tuesday Dose/Route: 10 mg Instruction: 1 x 10 mg tablet Condition: Dose/Route: 10 mg Instruction: 1 x 10 mg tablet Condition: Tuesday Dose/Route: 10 mg Instruction: 1 x 10 mg tablet Condition: Tuesday Dose/Route: 10 mg Instruction: 1 x 10 mg tablet Protocol Text: Adjustment Start Date: Tuesday06/18/24 INR Value: 2.1 INR Date: 06/18/24 Recheck Date: 06/25/24 Additional Instructions: Per TCK, patient informed to keep same dose and recheck in 1 week. Dose Instruction: TAKE 2 TABLETS BY MOUTH EVERY DAY Rx Instructions: TAKE 2 TABLETS BY MOUTH EVERY DAY atorvastatin 20 mg tablet See Rx Instructions .ROUTE .COMPLEX Qty: 30 2RF Dose Instruction: TAKE 1 TABLET BY MOUTH DAILY Rx Instructions: TAKE 1 TABLET BY MOUTH DAILY bupropion HCl 300 mg tablet extended release 24 hr See Rx Instructions .ROUTE .COMPLEX Qty: 30 2RF Dose Instruction: TAKE 1 TABLET BY MOUTH EVERY MORNING Rx Instructions: TAKE 1 TABLET BY MOUTH EVERY MORNING triamterene-hydrochlorothiazid 37.5-25 mg tablet See Rx Instructions .ROUTE .COMPLEX Qty: 30 3RF Dose Instruction: TAKE 1 TABLET BY MOUTH EVERY MORNING NEEDED FOR SWELLING Rx Instructions: TAKE 1 TABLET BY MOUTH EVERY MORNING NEEDED FOR SWELLING phentermine 37.5 mg tablet 18.75 mg PO DAILY Qty: 30 2RF Rx Instructions: must administer 30 minutes before or 1-2 hours after breakfast Follow-up/Referrals: Carlos Mckay MD [Primary Care Provider] -
--- OUTSIDE RECORDS SUMMARY | 2024-06-26 13:17 | XMS_ITS | Clinical Summary ---
Author Organization [facility] Address [address] [place] [address] Phone Care Team Providers Care Braider Setter Name Role Phone Unavailable Unavailable Unavailable Reason [...] Time Diagnosis PELVIC EXAM FANNY JEAN M.D. [facility] HEATING ELEMENT BUILDER 7 5:24PM 6:02PM Clinical Notes Includes: Clinical Notes from this encounter No Clinical Notes Recorded
--- OUTSIDE RECORDS SUMMARY | 2024-06-26 13:17 | XMS_ITS ---
Author Organization [facility] [[email or web address] Address [address] [place] [address] Phone Care Team Providers Care Proctologist Name Role Phone Unavailable Unavailable Unavailable Plan of Treatment Findings Encounter Date Ordered patient will call r appointment as needed SICK VISIT with CHICHI ASKEW [facility]- 02/26/2020 Last Documented On 0 4:38PM ; [facility] Ordered return to the clinic if condition worsens or new symptoms arise SICK VISIT with CHICHI ASKEW [facility]- 02/26/2020 Last Documented On 0 4:38PM ; [facility] Instructions to patient Instructions for patient Last Documented On 0 4:36PM ; [facility] Assessments Includes: Assessments for all patient encounters No Assessments Recorded Instructions Includes: Instructions for all patient encounters Instructions to patient Instructions for patient Last Documented On 0 4:36PM ; [facility] Medical Equipment - Implanted Devices Includes: Current [...] 06/19/2009 Last Documented On 0 8:19AM ; [facility] Exercising regularly 06/19/2009 Last Documented On 0 8:19AM ; [facility] Marital history 06/19/2009 Last Documented On 0 8:19AM ; [facility] Sexually active with 1 partners in the l ast year 06/19/2009 Last Documented On 0 8:19AM ; [facility] Smoking 5 cigs/day 06/19/2009 Last Documented On 0 8:19AM ; [facility] Smoking Status Unknown Medical History Includes: Medical History in patient's chart Description Last Updated Hx of DVT & PE in 1999 ~Hx o f depression ~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 ~Age 8 - eye surgery 06/19/2009 Last Documented On 0 8:19AM ; [facility] [[email or web address] 1 living children 06/19/2009 Last Documented On 0 8:19AM ; [facility] 2 miscarriage(s) 06/19/2009 Last Documented On 0 8:19AM ; [facility] Chlamydia 06/19/2009 Last Documented On 0 8:19AM ; [facility] 4 06/19/2009 Last Documented On 0 8:19AM ; [facility] IUD removed 04/09/08 06/19/2009 Last Documented On 0 8:19AM ; [facility] Kidney disease 06/19/2009 Last Documented On 0 8:19AM ; [facility] Last pap smear date 04/09/2008 0 Last Documented On 0 8:19AM ; [facility] LMP: 10/23/2008 06/19/2009 Last Documented On 0 8:19AM ; [facility] Family History Includes: Family History in patient's chart Description Last Updated Family history unchanged 02/26/2020 Last Documented On 0 4:38PM ; [facility] Family history of Cancer 06/19/2009 Last Documented On 0 8:19AM ; [facility] Review of Systems Review of Systems not [...]
--- OUTSIDE RECORDS SUMMARY | 2024-06-26 13:17 | XMS_ITS | Clinical Summary ---
Author Organization [facility] Address [address] [place] [address] Phone Care Team Providers Care Blindstitch Lining Feller Name Role Phone Unavailable Unavailable Unavailable Reason [...] Time Diagnosis PROBLEM VISIT FANNY JEAN M.D. [facility] REGULATORY ADMINISTRATOR 8 8:58AM 10:36AM Clinical Notes Includes: Clinical Notes from this encounter No Clinical Notes Recorded
--- OUTSIDE RECORDS SUMMARY | 2024-06-26 13:17 | XMS_ITS | Clinical Summary ---
Author Organization [facility] Address [address] [place] [address] Phone Care Team Providers Care Data Warehouse Consultant Name Role Phone Unavailable Unavailable Unavailable Reason [...] 06/19/2009 Last Documented On 0 8:19AM ; [facility] Exercising regularly 06/19/2009 Last Documented On 0 8:19AM ; [facility] Marital history 06/19/2009 Last Documented On 0 8:19AM ; [facility] Sexually active with 1 partners in the l ast year 06/19/2009 Last Documented On 0 8:19AM ; [facility] Smoking 5 cigs/day 06/19/2009 Last Documented On 0 8:19AM ; [facility] Smoking Status Unknown Medical History Includes: Medical History addressed during this encounter Description Last Updated Hx of DVT & PE in 1999 ~Hx o f depression ~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 ~Age 8 - eye surgery 06/19/2009 Last Documented On 0 8:19AM ; [facility] 1 living children 06/19/2009 Last Documented On 0 8:19AM ; [facility] 2 miscarriage(s) 06/19/2009 Last Documented On 0 8:19AM ; [facility] Chlamydia 06/19/2009 Last Documented On 0 8:19AM ; [facility] 4 06/19/2009 Last Documented On 0 8:19AM ; [facility] IUD removed 04/09/08 06/19/2009 Last Documented On 0 8:19AM ; [facility] Kidney disease 06/19/2009 Last Documented On 0 8:19AM ; [facility] Last pap smear date 04/09/2008 0 Last Documented On 0 8:19AM ; [facility] LMP: 10/23/2008 06/19/2009 Last Documented On 0 8:19AM ; [facility] Family History Includes: Family History addressed during this encounter Description Last Updated Family history of Cancer 06/19/2009 Last Documented On 0 8:19AM ; [facility] Review of Systems Includes: Review [...] Time Diagnosis CHART UPDATE FANNY JEAN M.D. [facility] DIE FILER 0 8:11AM 11:59PM Clinical Notes Includes: Clinical Notes from this encounter No Clinical Notes Recorded
--- OUTSIDE RECORDS SUMMARY | 2024-06-26 13:17 | XMS_ITS | Clinical Summary ---
Author Organization [facility] [address] Address [address] [place] [address] Care Team Providers Care Soft Work Wrapper Layer And Examiner Name Role Phone Carlos Mckay MD Primary Care Provider [phone] Allergies No known active allergies Medications warfarin [...] on file Legal Sex Female 11:13 AM HOSPITAL NURSE Gender Identity Not on file Sexual Orientation Not on file Obstetrics History Last Filed Vital Signs Vital Sign Reading Time Taken Comments Blood Pressure 152/82 03/24/2022 2:58 PM HOSPITAL NURSE Pulse 80 03/24/2022 2:58 PM HOSPITAL NURSE Temperature 36.6 C (97.9 F) 03/24/2022 2:58 PM HOSPITAL NURSE Respiratory Rate 16 03/24/2022 2:58 PM HOSPITAL NURSE Oxygen Saturation 100% 03/24/2022 2:58 PM HOSPITAL NURSE Inhaled Oxygen Concentration - - Weight 74.4 kg (164 lb) 03/24/2022 2:58 PM HOSPITAL NURSE Height 170.2 cm (5' 7 ) 03/24/2022 2:58 PM HOSPITAL NURSE Body Mass Index 25.69 03/24/2022 2:58 PM HOSPITAL NURSE Plan of Treatment Health Maintenance Due Date [...] DIGITAL MAMMOGRAPHY Routine 03/12/2013 3 :40 PM HOSPITAL NURSE from Last 3 Months or Most Recently Relevant to Health Maintenance Results * DIGITAL MAMMOGRAPHY (03/12/2013 3:40 PM HOSPITAL NURSE) Anatomical Region Laterality Modality Breast Mammography 03/12/2013 3:40 PM HOSPITAL NURSE Narrative 03/13/2013 12:47 PM HOSPITAL NURSE Vrl Screening Mamm Bi Acc#: [id number] Performed by: jennifer DATE OF EXAM: Mar [...] - 08/12/2016 Vrl Screening Mamm Bi Acc#: [id number] Performed by: jennifer DATE OF EXAM: Mar [...] Digital technology was employed plus computer-aideddetection software ([employer]) was utilized in interpretation of these images.This [...] DR: LALITO ESTRADA Attending DR: LALITO ESTRADA [facility] Provider IMDemond MAMMO PROCEDURES Nickie l Result from Last 3 Months or Most Recently Relevant to Health Maintenance Insurance [facility] CHOICE PLUS [facility] CHOICE PLUS [address] Care Teams Soft Work Wrapper Layer And Examiner Relationship Specialty Start Date End Date Carlos Mckay MD [address] [facility] [address] [place] [address] PCP - General Internal Medicine 02/05/21
--- OUTSIDE RECORDS SUMMARY | 2024-06-26 13:17 | XMS_ITS ---
Care Plan - [facility] Created on: June 26, 2024 KARAN COYLE : 1975 Sex: Female Author Organization [facility] Address [address] [place] [address] Phone Care Team Providers Care Diploma Maker Name Role Phone Unavailable Unavailable Unavailable
--- OUTSIDE RECORDS SUMMARY | 2024-06-26 13:17 | XMS_ITS | Clinical Summary ---
Author Organization [facility] Address [address] [place] [address] Phone Care Team Providers Care Clinical Business Analyst Name Role Phone Unavailable Unavailable Unavailable Reason for Visit and Chief Complaint LONGTERM ROUNDS Plan of Treatment No Plan of [...] 199.375 Last Documented: On 12/05/2013 3:20PM ; [facility] Results Includes: Results discussed during this [...] Date Check-In Time Check- Out Time Diagnosis LONGTERM ROUNDS ROSEANNE LAMB M.D. [facility] 4 3:19PM 11:59PM Clinical Notes Includes: Clinical Notes from this encounter No Clinical Notes Recorded
--- OUTSIDE RECORDS SUMMARY | 2024-06-26 13:17 | XMS_ITS | Clinical Summary ---
Author Organization [facility] Address [address] [place] [address] Phone Care Team Providers Care Full Service Vending Driver Name Role Phone Unavailable Unavailable Unavailable Reason for Visit and Chief Complaint The Chief Complaint is: PT WAS EXPOSED TO COVID-19, STATES THAT SHE HAS RUNNY NOSE, HEADACHE, FATIGUE, AND SORE THROAT Plan of Treatment - Return to the clinic if condition worsens or new symptoms arise - Last Documented On 02/26/2020 4:38PM ; [facility] - Patient will call for appointment as needed - Last Documented On 02/26/2020 4:38PM ; [facility] Instructions to patient Instructions for patient Last Documented On 0 4:36PM ; [facility] Assessments Includes: Assessments from this encounter No Assessments Recorded Instructions Includes: Instructions from this encounter Instructions to patient Instructions for patient Last Documented On 0 4:36PM ; [facility] Medical Equipment - Implanted Devices Includes: Current Devices No Medical Equipment Recorded Medications Administered Includes: Administered Medications from this encounter No Administered Medications Recorded Vital Signs Includes: Vital Signs from this encounter Vital Name 02/26/2020 02:55P Pulse Rate-Sitting (bpm) 72 Temp-Oral (F) 98.4 Oxygen Saturation (%) 98 Last Documented: On 02/26/2020 2:55PM ; [facility] Results Includes: Results discussed during this encounter Rapid COVID Test [facility] Ordered by CHICHI ASKEW MEETING MANAGER- on Collected: Reported: 02/26/2020 15:00 Last Documented On 0 3:00PM ; [facility] Reviewed on 02/26/2020; All test results are final unless otherwise noted. Rapid COVId NEG N (Normal) Last Documented On 0 3:00PM ; [facility] Int. QC Acceptable N (Normal) Last Documented On 0 3:00PM ; [facility] Lot # and Exp. Date [id number] 07/04/2020 N (Normal) Last Documented On 0 3:00PM ; [facility] History of Present Illness Includes: [...] 06/19/2009 Last Documented On 0 2:54PM ; [facility] Marital history 06/19/2009 Last Documented On 0 2:54PM ; [facility] Sexually active with 1 partners in the l ast year 06/19/2009 Last Documented On 0 2:54PM ; [facility] Smoking 5 cigs/day 06/19/2009 Last Documented On 0 2:54PM ; [facility] Smoking Status Unknown Procedures and Surgical History Includes: Procedures from this encounter Procedures Code Diagnosis Performing Provider Service L ocation Service Date plan of care reviewed and agreed to by the patient Last Documented On 0 3:11PM ; [facility] review of medications documented 1160F Last Documented On 0 2:55PM ; [facility] Patient verbalizes understanding Last Documented On 0 4:36PM ; [facility] Increase fluids Last Documented On 0 4:36PM ; [facility] Clinical summary provided to patient Last Documented On 0 4:36PM ; [facility] Medical History Includes: Medical History addressed during this encounter Description Last Updated Hx of DVT & PE in 1999 ~Hx o f depression ~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 ~Age 8 - eye surgery 06/19/2009 Last Documented On 0 2:54PM ; [facility] 1 living children 06/19/2009 Last Documented On 0 2:54PM ; [facility] 2 miscarriage(s) 06/19/2009 Last Documented On 0 2:54PM ; [facility] Chlamydia 06/19/2009 Last Documented On 0 2:54PM ; [facility] 4 06/19/2009 Last Documented On 0 2:54PM ; [facility] IUD removed 04/09/08 06/19/2009 Last Documented On 0 2:54PM ; [facility] Kidney disease 06/19/2009 Last Documented On 0 2:54PM ; [facility] Last pap smear date 04/09/2008 0 Last Documented On 0 2:54PM ; [facility] LMP: 10/23/2008 06/19/2009 Last Documented On 0 2:54PM ; [facility] Family History Includes: Family History addressed during this encounter Description Last Updated Family history unchanged 02/26/2020 Last Documented On 0 4:38PM ; [facility] Family history of Cancer 06/19/2009 Last Documented On 0 2:54PM ; [facility] Review of Systems Includes: Review [...] Check-Out Time Diagnosis SICK VISIT CHICHI ASKEW MEETING MANAGER-BC [facility] 0 2:45PM 2:59PM Clinical Notes Includes: Clinical Notes from this encounter No Clinical Notes Recorded
--- OUTSIDE RECORDS SUMMARY | 2024-06-26 13:17 | XMS_ITS | Referral Summary ---
Author Organization [facility] [address] Address [address] [place] [address] Care Team Providers Care Security Rep Name Role Phone Carlos Mckay MD Primary Care Provider [phone] Allergies No known active allergies Medications warfarin [...] on file Legal Sex Female 11:13 AM PEER EDUCATOR Gender Identity Not on file Sexual Orientation Not on file Last Filed Vital Signs Vital Sign Reading Time Taken Comments Blood Pressure 152/82 03/24/2022 2:58 PM PEER EDUCATOR Pulse 80 03/24/2022 2:58 PM PEER EDUCATOR Temperature 36.6 C (97.9 F) 03/24/2022 2:58 PM PEER EDUCATOR Respiratory Rate 16 03/24/2022 2:58 PM PEER EDUCATOR Oxygen Saturation 100% 03/24/2022 2:58 PM PEER EDUCATOR Inhaled Oxygen Concentration - - Weight 74.4 kg (164 lb) 03/24/2022 2:58 PM PEER EDUCATOR Height 170.2 cm (5' 7 ) 03/24/2022 2:58 PM PEER EDUCATOR Body Mass Index 25.69 03/24/2022 2:58 PM PEER EDUCATOR Plan of Treatment Not on file Procedures Procedure Name Priority Date/Time Associated Diagnosis Comments DIGITAL MAMMOGRAPHY Routine 03/12/2013 3 :40 PM PEER EDUCATOR from Last 3 Months or Most Recently Relevant to Health Maintenance Results * DIGITAL MAMMOGRAPHY (03/12/2013 3:40 PM PEER EDUCATOR) Anatomical Region Laterality Modality Breast Mammography 03/12/2013 3:40 PM PEER EDUCATOR Narrative 03/13/2013 12:47 PM PEER EDUCATOR Vrl Screening Mamm Bi Acc#: [id number] Performed by: jennifer DATE OF EXAM: Mar [...] - 08/12/2016 Vrl Screening Mamm Bi Acc#: [id number] Performed by: jennifer DATE OF EXAM: Mar [...] Most Recently Relevant to Health Maintenance Insurance [facility] [employer] [place] [facility] [employer] [place] Care Teams Security Rep Relationship Specialty Start Date End Date Carlos Mckay MD [address] [place] [address] PCP - General Internal Medicine 02/05/21
== END 2024-06-26 11:42 | disposition home or self-care (01) ==
LOC: ANHED 11:34
PROVIDERS: Emergency Provider Physician Assistant; PCP Internal Medicine
DX: S09.90XA Unspecified injury of head, initial encounter (principal); Z79.01 Long term (current) use of anticoagulants; Z87.891 Personal history of nicotine dependence; W22.09XA Striking against other stationary object, initial encounter
CPT/HCPCS: 70450; 99284